=== PATIENT | female | born 1930 | race Caucasian/White ===

== ENCOUNTER 2016-07-04 10:43 | Inpatient (IN) | payer MEDICARE, OTHER ==
[~2016-07-04] VITALS: Ht 160 cm; Wt 65.8 kg
[2016-07-04 11:15] VITALS: BP 161/82
[2016-07-04 13:04] VITALS: BP 162/42
[2016-07-04 14:38] LABS: BASOPHILS 0.1 % (0.0-2.0); EOSINOPHILS 0 % (0-7); HEMATOCRIT 47.1 % (36.0-48.0); HEMOGLOBIN 16.3 g/dL (12-16); IMMATURE GRANULOCYTES 0.5 % (0-5); LYMPHOCYTES 8.1 % (15-50); MCH 28.6 pg (26.0-34.0); MCHC 34.6 g/dL (31.0-37.0); MCV 82.8 fL (80.0-100.0); MEAN PLATELET VOLUME 11.4 fL (7.4-10.4); MONOCYTES 8.1 % (2-11); NEUTROPHILS 83.2 % (40-80); PLATELET COUNT 287 10x3/uL (130-400); RBC 5.69 10x6/uL (4.00-5.40); RDW 14.1 % (11.5-14.5); WBC 19.4 10x3/uL (4.8-10.8)
[2016-07-04 16:31] VITALS: BP 153/70
[2016-07-04 16:53] LABS: ANION GAP 14.5 mmol/L (8-16); BILIRUBIN - TOTAL 0.51 mg/dL (0.2-1.3); CALCIUM 8.8 mg/dL (8.5-10.1); CARBON DIOXIDE 27.8 mmol/L (21.0-32.0); CREATININE - SERUM 1.2 mg/dL (0.6-1.3); POTASSIUM - SERUM 3.3 mmol/L (3.5-5.1); PROTEIN - SERUM 7.6 g/dL (6.4-8.2)
[2016-07-04 22:23] VITALS: BP 147/72
[2016-07-04 22:40] VITALS: BP 147/72
[2016-07-05] VITALS (7 sets, daily range): BP systolic 121–151; BP diastolic 52–87; Ht 160 cm; Wt 65.8 kg
[2016-07-05 08:14] LABS: HEMATOCRIT 46.6 % (36.0-48.0); HEMOGLOBIN 15.9 g/dL (12-16); RBC 5.49 10x6/uL (4.00-5.40); WBC 25.3 10x3/uL (4.8-10.8)
[2016-07-05 08:15] LABS: MCHC 34.1 g/dL (31.0-37.0); MCV 84.9 fL (80.0-100.0); MEAN PLATELET VOLUME 11.1 fL (7.4-10.4); PLATELET COUNT 312 10x3/uL (130-400); RDW 14.6 % (11.5-14.5)
[2016-07-05 08:19] LABS: ALBUMIN 3.2 g/dL (3.4-5.0); BILIRUBIN - TOTAL 0.55 mg/dL (0.2-1.3); CALCIUM 7.9 mg/dL (8.5-10.1); CARBON DIOXIDE 25.6 mmol/L (21.0-32.0); CHOL - HDL RATIO 2.7 ratio (2.3-4.1); CREATININE - SERUM 1.2 mg/dL (0.6-1.3); LDL-HDL RATIO 1.3 ratio (1.5-3.5); PROTEIN - SERUM 6.1 g/dL (6.4-8.2)
[2016-07-05 08:21] LABS: ANION GAP 16.2 mmol/L (8-16); POTASSIUM - SERUM 3.8 mmol/L (3.5-5.1)
[2016-07-05 08:49] LABS: LYMPHOCYTES 15 % (15-50); MONOCYTES 3 % (2-11); NEUTROPHILS 70 % (40-80); PLATELET ESTIMATE NORMAL
[2016-07-05 11:10] LABS: APPEARANCE CLEAR (CLEAR); BILIRUBIN NEGATIVE (NEGATIVE); COLOR YELLOW (YELLOW); GLUCOSE NEGATIVE (NEGATIVE); KETONE NEGATIVE (NEGATIVE); LEUKOCYTE ESTERASE TRACE (NEGATIVE); NITRITE NEGATIVE (NEGATIVE); PROTEIN 1+ mg/dL (NEGATIVE); SPECIFIC GRAVITY 1.015 (1.005-1.020); UROBILINOGEN NORMAL (NORMAL)
[2016-07-05 11:11] LABS: BACTERIA FEW /hpf (NONE SEEN); EPITHELIAL CELLS 0-5 /hpf (0-5); HYALINE CAST 0-5 /lpf (NONE SEEN); MUCUS <1+ /lpf (NONE SEEN); RED CELLS - URINE 0-5 /hpf (0-5); WHITE CELLS - URINE 0-5 /hpf (0-5)
[2016-07-06] VITALS: BP 159/64
[2016-07-06 04:00] VITALS: BP 152/62
[2016-07-06 06:00] LABS: BASOPHILS 0.1 % (0.0-2.0); EOSINOPHILS 0 % (0-7); HEMATOCRIT 42.3 % (36.0-48.0); HEMOGLOBIN 14.2 g/dL (12-16); MCH 28.8 pg (26.0-34.0); MCHC 33.6 g/dL (31.0-37.0); MCV 85.8 fL (80.0-100.0); MONOCYTES 8.2 % (2-11); NEUTROPHILS 81.7 % (40-80); PLATELET COUNT 264 10x3/uL (130-400); RBC 4.93 10x6/uL (4.00-5.40); WBC 20.7 10x3/uL (4.8-10.8)
[2016-07-06 06:27] LABS: ALBUMIN 2.4 g/dL (3.4-5.0); BILIRUBIN - TOTAL 0.4 mg/dL (0.2-1.3); CALCIUM 7.5 mg/dL (8.5-10.1); CARBON DIOXIDE 23.2 mmol/L (21.0-32.0); POTASSIUM - SERUM 4.2 mmol/L (3.5-5.1); THYROID STIMULATING HORMONE 2.31 uIU/mL (0.36-3.74)
[2016-07-06 09:00] VITALS: BP 146/54
[2016-07-06 16:34] VITALS: BP 146/54
[2016-07-06 23:13] VITALS: BP 151/71
[2016-07-07 04:00] VITALS: BP 136/67
[2016-07-07 06:49] LABS: BASOPHILS 0.2 % (0.0-2.0); EOSINOPHILS 0.1 % (0-7); HEMATOCRIT 38.2 % (36.0-48.0); HEMOGLOBIN 12.7 g/dL (12-16); IMMATURE GRANULOCYTES 2.4 % (0-5); LYMPHOCYTES 11.2 % (15-50); MCH 28.3 pg (26.0-34.0); MCHC 33.2 g/dL (31.0-37.0); MCV 85.1 fL (80.0-100.0); MEAN PLATELET VOLUME 10.8 fL (7.4-10.4); MONOCYTES 11.6 % (2-11); NEUTROPHILS 74.5 % (40-80); PLATELET COUNT 306 10x3/uL (130-400); RBC 4.49 10x6/uL (4.00-5.40); RDW 14.9 % (11.5-14.5); WBC 17.3 10x3/uL (4.8-10.8)
[2016-07-07 07:15] LABS: ALBUMIN 2.6 g/dL (3.4-5.0); ALKALINE PHOSPHATASE 63 U/L (46-116); ALT (SGPT) 19 U/L (10-68); AMYLASE - SERUM 88 U/L (25-115); CALC OSMOLALITY 282 mosm/kg (275-300); CALCIUM 7.7 mg/dL (8.5-10.1); CARBON DIOXIDE 22.7 mmol/L (21.0-32.0); CHLORIDE - SERUM 106 mmol/L (98-107); CREATININE - SERUM 0.7 mg/dL (0.6-1.3); GLUCOSE 82 mg/dL (74-106); LIPASE 166 U/L (73-393); POTASSIUM - SERUM 3.6 mmol/L (3.5-5.1); PROTEIN - SERUM 5.6 g/dL (6.4-8.2); SODIUM 141 mmol/L (136-145); THYROID STIMULATING HORMONE 2.07 uIU/mL (0.36-3.74); UREA NITROGEN 22 mg/dL (7-18); eGFR NON AFRICAN AMERICAN 84 mL/min (90-120)
[2016-07-07 08:37] VITALS: BP 153/65
[2016-07-07 12:12] VITALS: BP 155/70
[2016-07-07 16:58] VITALS: BP 158/72
[2016-07-07 20:00] VITALS: BP 170/70
[2016-07-08 04:00] VITALS: BP 158/58
[2016-07-08 06:41] LABS: HEMATOCRIT 38.1 % (36.0-48.0); HEMOGLOBIN 12.8 g/dL (12-16); MCH 28.3 pg (26.0-34.0); MCHC 33.6 g/dL (31.0-37.0); MCV 84.3 fL (80.0-100.0); MEAN PLATELET VOLUME 10.3 fL (7.4-10.4); PLATELET COUNT 335 10x3/uL (130-400); RBC 4.52 10x6/uL (4.00-5.40); RDW 14.5 % (11.5-14.5)
[2016-07-08 07:04] LABS: ALBUMIN 2.3 g/dL (3.4-5.0); ALKALINE PHOSPHATASE 73 U/L (46-116); ALT (SGPT) 23 U/L (10-68); CALCIUM 7.8 mg/dL (8.5-10.1); CARBON DIOXIDE 21.8 mmol/L (21.0-32.0); CHLORIDE - SERUM 101 mmol/L (98-107); CREATININE - SERUM 0.7 mg/dL (0.6-1.3); LIPASE 72 U/L (73-393); PROTEIN - SERUM 5.2 g/dL (6.4-8.2); SODIUM 135 mmol/L (136-145); eGFR NON AFRICAN AMERICAN 84 mL/min (90-120)
[2016-07-08 07:05] LABS: AMYLASE - SERUM 31 U/L (25-115); CALC OSMOLALITY 268 mosm/kg (275-300); GLUCOSE 58 mg/dL (74-106); UREA NITROGEN 16 mg/dL (7-18)
[2016-07-08 08:05] LABS: LYMPHOCYTES 20 % (15-50); MONOCYTES 10 % (2-11); NEUTROPHILS 62 % (40-80); PLATELET ESTIMATE NORMAL
[2016-07-08 08:20] VITALS: BP 166/77
[2016-07-08 12:30] VITALS: BP 176/63
[2016-07-08 16:36] VITALS: BP 151/80
[2016-07-08 20:00] VITALS: BP 162/69
[2016-07-09 06:06] LABS: BASOPHILS 0.6 % (0.0-2.0); EOSINOPHILS 0.9 % (0-7); HEMATOCRIT 35.4 % (36.0-48.0); HEMOGLOBIN 12.5 g/dL (12-16); IMMATURE GRANULOCYTES 8.5 % (0-5); MCH 28.6 pg (26.0-34.0); MCHC 35.3 g/dL (31.0-37.0); MEAN PLATELET VOLUME 10.1 fL (7.4-10.4); MONOCYTES 12.1 % (2-11); NEUTROPHILS 66.9 % (40-80); PLATELET COUNT 319 10x3/uL (130-400); RBC 4.37 10x6/uL (4.00-5.40); RDW 14.1 % (11.5-14.5)
[2016-07-09 07:20] LABS: ALBUMIN 1.9 g/dL (3.4-5.0); ALKALINE PHOSPHATASE 69 U/L (46-116); ALT (SGPT) 20 U/L (10-68); BILIRUBIN - TOTAL 0.82 mg/dL (0.2-1.3); CALCIUM 7.3 mg/dL (8.5-10.1); CARBON DIOXIDE 25.5 mmol/L (21.0-32.0); CHLORIDE - SERUM 103 mmol/L (98-107); CREATININE - SERUM 0.7 mg/dL (0.6-1.3); LIPASE 58 U/L (73-393); PROTEIN - SERUM 4.6 g/dL (6.4-8.2); SODIUM 140 mmol/L (136-145); eGFR NON AFRICAN AMERICAN 84 mL/min (90-120)
[2016-07-09 07:22] LABS: AMYLASE - SERUM 17 U/L (25-115); CALC OSMOLALITY 277 mosm/kg (275-300); GLUCOSE 99 mg/dL (74-106); UREA NITROGEN 11 mg/dL (7-18)
[2016-07-09 07:23] LABS: POTASSIUM - SERUM 2.3 mmol/L (3.5-5.1)
[2016-07-09 08:19] LABS: EOSINOPHILS 1 % (0-7); LYMPHOCYTES 23 % (15-50); MONOCYTES 3 % (2-11); NEUTROPHILS 65 % (40-80)
[2016-07-09 08:21] LABS: PLATELET ESTIMATE NORMAL
[2016-07-09 08:23] LABS: ANISOCYTOSIS OCC; BURR CELLS 1+; CRENATED CELLS OCC; ROULEAUX 1+
[2016-07-09 08:40] VITALS: BP 156/51
[2016-07-09 09:10] LABS: PATH REVIEW PERIPHERAL SMEAR REVIEWED
[2016-07-09 13:31] VITALS: BP 174/74
[2016-07-09 17:19] VITALS: BP 159/67
[2016-07-09 21:35] VITALS: BP 174/84
[2016-07-10 04:45] LABS: BASOPHILS 0.9 % (0.0-2.0); HEMATOCRIT 35.3 % (36.0-48.0); HEMOGLOBIN 12.6 g/dL (12-16); IMMATURE GRANULOCYTES 13.2 % (0-5); LYMPHOCYTES 11.4 % (15-50); MCH 28.3 pg (26.0-34.0); MCHC 35.7 g/dL (31.0-37.0); MCV 79.3 fL (80.0-100.0); MEAN PLATELET VOLUME 9.4 fL (7.4-10.4); MONOCYTES 12.9 % (2-11); NEUTROPHILS 60.6 % (40-80); PLATELET COUNT 304 10x3/uL (130-400); RBC 4.45 10x6/uL (4.00-5.40); WBC 18.3 10x3/uL (4.8-10.8)
[2016-07-10 05:05] LABS: ALBUMIN 1.9 g/dL (3.4-5.0); BILIRUBIN - TOTAL 0.75 mg/dL (0.2-1.3); CALCIUM 7.8 mg/dL (8.5-10.1); CREATININE - SERUM 0.8 mg/dL (0.6-1.3); PROTEIN - SERUM 5.7 g/dL (6.4-8.2)
[2016-07-10 05:07] LABS: ANION GAP 12.2 mmol/L (8-16)
[2016-07-10 05:08] LABS: POTASSIUM - SERUM 2.2 mmol/L (3.5-5.1)
[2016-07-10 08:41] VITALS: BP 131/83
[2016-07-10 11:42] VITALS: BP 163/82
[2016-07-10 15:34] VITALS: BP 178/86
[2016-07-10 21:54] VITALS: BP 154/82
[2016-07-11 06:11] LABS: BASOPHILS 1.2 % (0.0-2.0); HEMATOCRIT 36.2 % (36.0-48.0); HEMOGLOBIN 12.9 g/dL (12-16); IMMATURE GRANULOCYTES 13.7 % (0-5); LYMPHOCYTES 14.8 % (15-50); MCH 28.4 pg (26.0-34.0); MCHC 35.6 g/dL (31.0-37.0); MCV 79.7 fL (80.0-100.0); MEAN PLATELET VOLUME 9.8 fL (7.4-10.4); MONOCYTES 11.9 % (2-11); NEUTROPHILS 56.4 % (40-80); PLATELET COUNT 320 10x3/uL (130-400); RBC 4.54 10x6/uL (4.00-5.40); RDW 14.5 % (11.5-14.5); WBC 18.6 10x3/uL (4.8-10.8)
[2016-07-11 06:35] LABS: BILIRUBIN - TOTAL 0.66 mg/dL (0.2-1.3); CALCIUM 8.2 mg/dL (8.5-10.1); CREATININE - SERUM 0.8 mg/dL (0.6-1.3); MAGNESIUM - SERUM 1.3 mg/dL (1.8-2.4); PROTEIN - SERUM 5.8 g/dL (6.4-8.2)
[2016-07-11 08:44] VITALS: BP 150/63
[2016-07-11 11:49] VITALS: BP 156/71
[2016-07-11 15:37] VITALS: BP 175/67
[2016-07-11 21:45] VITALS: BP 150/64
[2016-07-11 23:00] VITALS: BP 163/67
[2016-07-12 04:00] VITALS: BP 141/73
[2016-07-12 05:54] LABS: BASOPHILS 1.1 % (0.0-2.0); EOSINOPHILS 1.7 % (0-7); HEMATOCRIT 35.9 % (36.0-48.0); HEMOGLOBIN 12.6 g/dL (12-16); LYMPHOCYTES 19.7 % (15-50); MCH 28.3 pg (26.0-34.0); MCHC 35.1 g/dL (31.0-37.0); MCV 80.7 fL (80.0-100.0); MEAN PLATELET VOLUME 9.7 fL (7.4-10.4); MONOCYTES 10.3 % (2-11); NEUTROPHILS 57.2 % (40-80); PLATELET COUNT 321 10x3/uL (130-400); RBC 4.45 10x6/uL (4.00-5.40); RDW 14.7 % (11.5-14.5); WBC 22.9 10x3/uL (4.8-10.8)
[2016-07-12 06:09] LABS: ANION GAP 9.9 mmol/L (8-16); BILIRUBIN - TOTAL 0.6 mg/dL (0.2-1.3); CALCIUM 8.4 mg/dL (8.5-10.1); CARBON DIOXIDE 29.5 mmol/L (21.0-32.0); CREATININE - SERUM 0.9 mg/dL (0.6-1.3); MAGNESIUM - SERUM 1.3 mg/dL (1.8-2.4); POTASSIUM - SERUM 3.4 mmol/L (3.5-5.1); PROTEIN - SERUM 5.8 g/dL (6.4-8.2)
[2016-07-12 08:57] VITALS: BP 161/64
[2016-07-12 12:24] VITALS: BP 149/56
[2016-07-12 16:02] VITALS: BP 153/74
[2016-07-12 20:00] VITALS: BP 152/68
[2016-07-13] VITALS: BP 146/59
[2016-07-13] MEDS ORDERED: PRAVACHOL40 MG PO (00:43)
[2016-07-13] MEDS ORDERED: NORVASC5 MG PO (00:46)
[2016-07-13] MEDS ORDERED: CALTRATE 600 M600 M1 PO (00:49)
[2016-07-13] MEDS ORDERED: K-DUR20 MEQ PO (00:50)
[2016-07-13] MEDS ORDERED: VITAMIN D31000 UNI2 PO (00:51)
[2016-07-13] MEDS ORDERED: [UNRECOGNIZED DRUG - OTHER] PO (00:56)
[2016-07-13 04:00] VITALS: BP 157/55
[2016-07-13 06:15] LABS: HEMOGLOBIN 11.4 g/dL (12-16); MCH 28.3 pg (26.0-34.0); MCHC 34.5 g/dL (31.0-37.0); MCV 81.9 fL (80.0-100.0); MEAN PLATELET VOLUME 9.6 fL (7.4-10.4); PLATELET COUNT 339 10x3/uL (130-400); RBC 4.03 10x6/uL (4.00-5.40); RDW 15.2 % (11.5-14.5)
[2016-07-13 06:45] LABS: ALBUMIN 1.9 g/dL (3.4-5.0); ANION GAP 8.2 mmol/L (8-16); BILIRUBIN - TOTAL 0.55 mg/dL (0.2-1.3); CARBON DIOXIDE 30.9 mmol/L (21.0-32.0); CREATININE - SERUM 0.9 mg/dL (0.6-1.3); PROTEIN - SERUM 5.6 g/dL (6.4-8.2)
[2016-07-13 06:48] LABS: MAGNESIUM - SERUM 2.2 mg/dL (1.8-2.4); POTASSIUM - SERUM 4.1 mmol/L (3.5-5.1)
[2016-07-13 07:33] LABS: EOSINOPHILS 4 % (0-7); LYMPHOCYTES 19 % (15-50); MONOCYTES 3 % (2-11); NEUTROPHILS 66 % (40-80); PLATELET ESTIMATE NORMAL
[2016-07-13 07:53] VITALS: BP 130/73
[2016-07-13 11:10] VITALS: BP 141/57
[2016-07-13 15:56] VITALS: BP 140/54
[2016-07-13 19:00] VITALS: BP 147/57
[2016-07-14 04:00] VITALS: BP 139/57
[2016-07-14 06:58] LABS: BASOPHILS 0.2 % (0.0-2.0); EOSINOPHILS 1.8 % (0-7); HEMATOCRIT 32.9 % (36.0-48.0); HEMOGLOBIN 11.1 g/dL (12-16); IMMATURE GRANULOCYTES 4.7 % (0-5); LYMPHOCYTES 15.2 % (15-50); MCH 27.9 pg (26.0-34.0); MCHC 33.7 g/dL (31.0-37.0); MCV 82.7 fL (80.0-100.0); MEAN PLATELET VOLUME 9.4 fL (7.4-10.4); MONOCYTES 8.1 % (2-11); PLATELET COUNT 324 10x3/uL (130-400); RBC 3.98 10x6/uL (4.00-5.40); RDW 15.5 % (11.5-14.5); WBC 16.7 10x3/uL (4.8-10.8)
[2016-07-14 07:14] LABS: BILIRUBIN - TOTAL 0.51 mg/dL (0.2-1.3); CALCIUM 8.4 mg/dL (8.5-10.1); CARBON DIOXIDE 28.5 mmol/L (21.0-32.0); CREATININE - SERUM 0.9 mg/dL (0.6-1.3); POTASSIUM - SERUM 4.5 mmol/L (3.5-5.1); PROTEIN - SERUM 5.7 g/dL (6.4-8.2)
[2016-07-14 07:20] LABS: MAGNESIUM - SERUM 1.6 mg/dL (1.8-2.4)
[2016-07-14 08:14] VITALS: BP 156/54
[2016-07-14 12:07] VITALS: BP 174/66
[2016-07-14 15:29] VITALS: BP 117/57
[2016-07-15] VITALS: BP 133/53
[2016-07-15 04:00] VITALS: BP 125/48
[2016-07-15 05:09] LABS: BASOPHILS 0.2 % (0.0-2.0); EOSINOPHILS 1.6 % (0-7); HEMOGLOBIN 10.8 g/dL (12-16); IMMATURE GRANULOCYTES 4.3 % (0-5); LYMPHOCYTES 10.9 % (15-50); MCH 27.4 pg (26.0-34.0); MCHC 32.7 g/dL (31.0-37.0); MCV 83.8 fL (80.0-100.0); MEAN PLATELET VOLUME 9.3 fL (7.4-10.4); MONOCYTES 9.2 % (2-11); NEUTROPHILS 73.8 % (40-80); PLATELET COUNT 321 10x3/uL (130-400); RBC 3.94 10x6/uL (4.00-5.40); RDW 15.2 % (11.5-14.5); WBC 14.6 10x3/uL (4.8-10.8)
[2016-07-15 05:33] LABS: ALBUMIN 2.1 g/dL (3.4-5.0); ANION GAP 10.8 mmol/L (8-16); BILIRUBIN - TOTAL 0.55 mg/dL (0.2-1.3); CALCIUM 8.3 mg/dL (8.5-10.1); CARBON DIOXIDE 29.5 mmol/L (21.0-32.0); MAGNESIUM - SERUM 1.5 mg/dL (1.8-2.4); POTASSIUM - SERUM 4.3 mmol/L (3.5-5.1); PROTEIN - SERUM 5.9 g/dL (6.4-8.2)
[2016-07-15 07:58] VITALS: BP 140/51
[2016-07-15 11:45] VITALS: BP 138/52
[2016-07-15 15:16] VITALS: BP 122/65
[2016-07-15 20:00] VITALS: BP 124/46
[2016-07-16] VITALS: BP 131/53
[2016-07-16 04:00] VITALS: BP 133/47
[2016-07-16 06:09] LABS: BASOPHILS 0.2 % (0.0-2.0); EOSINOPHILS 2.6 % (0-7); HEMATOCRIT 33.5 % (36.0-48.0); HEMOGLOBIN 11.1 g/dL (12-16); IMMATURE GRANULOCYTES 3.3 % (0-5); LYMPHOCYTES 16.2 % (15-50); MCH 28.1 pg (26.0-34.0); MCHC 33.1 g/dL (31.0-37.0); MCV 84.8 fL (80.0-100.0); MEAN PLATELET VOLUME 9.2 fL (7.4-10.4); MONOCYTES 10.1 % (2-11); NEUTROPHILS 67.6 % (40-80); PLATELET COUNT 341 10x3/uL (130-400); RBC 3.95 10x6/uL (4.00-5.40); RDW 15.2 % (11.5-14.5); WBC 11.1 10x3/uL (4.8-10.8)
[2016-07-16 06:40] LABS: ALBUMIN 2.1 g/dL (3.4-5.0); ANION GAP 9.1 mmol/L (8-16); BILIRUBIN - TOTAL 0.5 mg/dL (0.2-1.3); CALCIUM 8.6 mg/dL (8.5-10.1); CARBON DIOXIDE 29.9 mmol/L (21.0-32.0); CREATININE - SERUM 1.1 mg/dL (0.6-1.3); MAGNESIUM - SERUM 1.3 mg/dL (1.8-2.4); PROTEIN - SERUM 5.9 g/dL (6.4-8.2)
[2016-07-16 08:26] VITALS: BP 137/50
[2016-07-16] MEDS ORDERED: FLORAJEN3 CAPS460 MG PO (12:09)
[2016-07-16] MEDS ORDERED: PROTONIX40 MG PO (12:10)
[2016-07-16] MEDS ORDERED: Pancrease 5000,17,00 PO (12:10)
[2016-07-16 12:18] VITALS: BP 154/64
[2016-07-16] MEDS ORDERED: MAG-OXIDE400 MG PO (13:37)
[2016-07-16] MEDS ORDERED: HYDROCODON-ACE1 EAC7 PO (15:58)
== END 2016-07-16 16:18 | disposition home or self-care (01) | DRG 440 ==
LOC: D.MS 10:43 → D.SDCHOLD 14:47 → D.MS 14:47
PROVIDERS: Family Medicine; Internal Medicine Gastroenterology; ADMIT Family Medicine Adult Medicine
PROC: 05HB33Z Insertion of Infusion Device into Right Basilic Vein, Percutaneous Approach (ICD-10-PCS; principal; 2016-07-08)
PROC: B54MZZA Ultrasonography of Right Upper Extremity Veins, Guidance (ICD-10-PCS; 2016-07-08)
DX: K85.90 Acute pancreatitis without necrosis or infection, unspecified (principal); I10 Essential (primary) hypertension; E86.0 Dehydration; E87.6 Hypokalemia; E83.42 Hypomagnesemia

== ENCOUNTER → 2016-08-18 13:17 | Outpatient (CLI) | payer MEDICARE, OTHER ==
[2016-07-05 14:00] VITALS: BMI 25.6
[~2016-08-18 13:17] MED LIST: CALTRATE 600 M600 M1 PO; FLORAJEN3 CAPS460 MG PO; HYDROCODON-ACE1 EAC7 PO; K-DUR20 MEQ PO; MAG-OXIDE400 MG PO; NORVASC5 MG PO; PRAVACHOL40 MG PO; PROTONIX40 MG PO; Pancrease 5000,17,00 PO; VITAMIN D31000 UNI2 PO; [UNRECOGNIZED DRUG - OTHER] PO
== END | disposition home or self-care (01) ==
LOC: D.CT 13:17
DX: K86.3 Pseudocyst of pancreas (principal)

== ENCOUNTER 2019-05-18 12:49 | Emergency (ER) | payer MEDICARE, OTHER ==
[~2019-05-18] VITALS: Ht 160 cm; Wt 65.9 kg
[2019-05-18 12:55] VITALS: Ht 160 cm; Wt 65.9 kg
[2019-05-18] MEDS ORDERED: MACROBID100 MG PO (12:58)
[2019-05-18 13:17] LABS: COLOR YELLOW (YELLOW)
[2019-05-18 13:18] LABS: APPEARANCE CLEAR (CLEAR); BILIRUBIN NEGATIVE (NEGATIVE); GLUCOSE NEGATIVE (NEGATIVE); KETONE MODERATE mg/dL (NEGATIVE); NITRITE NEGATIVE (NEGATIVE); PROTEIN NEGATIVE (NEGATIVE); UROBILINOGEN NORMAL (NORMAL)
[2019-05-18 13:31] LABS: BASOPHILS 0.2 % (0-2); EOSINOPHILS 0.8 % (0-7); HEMATOCRIT 42.3 % (36.0-48.0); HEMOGLOBIN 13.9 g/dL (12-16); IMMATURE GRANULOCYTES 0.4 % (0-5); MCH 26.8 pg (26.0-34.0); MCHC 32.9 g/dL (31.0-37.0); MCV 81.7 fL (80.0-100.0); MEAN PLATELET VOLUME 10.3 fL (7.4-10.4); MONOCYTES 8.8 % (2-11); NEUTROPHILS 59.8 % (40-80); PLATELET COUNT 317 10x3/uL (130-400); RBC 5.18 10x6/uL (4.00-5.40); RDW 14.4 % (11.5-14.5); WBC 12.8 10x3/uL (4.8-10.8)
[2019-05-18 14:28] LABS: CALC OSMOLALITY 286 mosm/kg (275-300); CALCIUM 9.2 mg/dL (8.5-10.1); CARBON DIOXIDE 26.7 mmol/L (21.0-32.0); CHLORIDE - SERUM 104 mmol/L (98-107); CREATININE - SERUM 1.1 mg/dL (0.6-1.3); GLUCOSE 117 mg/dL (74-106); POTASSIUM - SERUM 3.5 mmol/L (3.5-5.1); SODIUM 142 mmol/L (136-145); UREA NITROGEN 20 mg/dL (7-18); eGFR NON AFRICAN AMERICAN 50 mL/min (90-120)
[2019-05-18 14:33] LABS: ALBUMIN 4.1 g/dL (3.4-5.0); ALKALINE PHOSPHATASE 110 U/L (46-116); ALT (SGPT) 46 U/L (10-68); AMYLASE - SERUM 38 U/L (25-115); LIPASE 110 U/L (73-393); PROTEIN - SERUM 7.8 g/dL (6.4-8.2); TROPONIN-I < 0.017 ng/mL (0.000-0.060)
[2019-05-18] MEDS ORDERED: CIPRO500 MG PO (17:06)
[2019-05-18] MEDS ORDERED: FLAGYL500 MG PO (17:06)
[2019-05-18 17:30] VITALS: BP 175/79
== END 2019-05-18 17:32 | disposition home or self-care (01) ==
LOC: D.ER 12:49
PROVIDERS: Emergency Medicine
DX: K57.92 Diverticulitis of intestine, part unspecified, without perforation or abscess without bleeding (principal); I10 Essential (primary) hypertension; K21.9 Gastro-esophageal reflux disease without esophagitis

== ENCOUNTER 2019-09-08 20:49 | Inpatient (IN) | payer MEDICARE, OTHER ==
[~2019-09-08] VITALS: Ht 160 cm; Wt 78.0 kg
[~2019-09-08 20:49] MED LIST changes: +CIPRO500 MG PO; +FLAGYL500 MG PO; +MACROBID100 MG PO
[2019-09-08 21:02] LABS: BASOPHILS 0.1 % (0-2); EOSINOPHILS 0.8 % (0-7); HEMATOCRIT 40.9 % (36.0-48.0); HEMOGLOBIN 12.9 g/dL (12-16); IMMATURE GRANULOCYTES 0.5 % (0-5); LYMPHOCYTES 22.4 % (15-50); MCH 25.6 pg (26.0-34.0); MCHC 31.5 g/dL (31.0-37.0); MCV 81.3 fL (80.0-100.0); MEAN PLATELET VOLUME 10.2 fL (7.4-10.4); MONOCYTES 8.6 % (2-11); NEUTROPHILS 67.6 % (40-80); PLATELET COUNT 343 10x3/uL (130-400); RBC 5.03 10x6/uL (4.00-5.40); RDW 14.8 % (11.5-14.5); WBC 16.9 10x3/uL (4.8-10.8)
[2019-09-08 21:12] LABS: CALC OSMOLALITY 286 mosm/kg (275-300); CALCIUM 8.9 mg/dL (8.5-10.1); CHLORIDE - SERUM 105 mmol/L (98-107); CREATININE - SERUM 1.3 mg/dL (0.6-1.3); GLUCOSE 199 mg/dL (74-106); POTASSIUM - SERUM 3.5 mmol/L (3.5-5.1); SODIUM 140 mmol/L (136-145); UREA NITROGEN 18 mg/dL (7-18); eGFR NON AFRICAN AMERICAN 41 mL/min (90-120)
[2019-09-08 21:25] LABS: ALBUMIN 3.9 g/dL (3.4-5.0); ALKALINE PHOSPHATASE 105 U/L (30-120); ALT (SGPT) 25 U/L (10-68); BILIRUBIN - TOTAL 0.29 mg/dL (0.2-1.3); PROTEIN - SERUM 7.4 g/dL (6.4-8.2)
[2019-09-08 21:27] LABS: LIPASE 8957 U/L (73-393); TROPONIN-I < 0.017 ng/mL (0.000-0.060)
[2019-09-08 21:28] LABS: AMYLASE - SERUM 898 U/L (25-115)
[2019-09-09 00:20] VITALS: BP 142/45; BMI 25.7
--- NOTE | 2019-09-09 00:50 | NUR ---
ASSITING PATIENT TO THE BATHROOM. PROVIDED EDUCATION ON MEDICAL INSURANCE CLAIMS PROCESSOR AND MEDICATIONS. PATIENT VERBALIZES UNDERSTANDING. RETURNED TO BED SAFELY. CPOC.
[2019-09-09 04:00] VITALS: BP 131/50
[2019-09-09 05:48] LABS: BASOPHILS 0 % (0-2); EOSINOPHILS 0 % (0-7); HEMOGLOBIN 11.9 g/dL (12-16); IMMATURE GRANULOCYTES 0.2 % (0-5); LYMPHOCYTES 12.7 % (15-50); MCH 25.3 pg (26.0-34.0); MCHC 31.3 g/dL (31.0-37.0); MCV 80.7 fL (80.0-100.0); NEUTROPHILS 82.1 % (40-80); PLATELET COUNT 326 10x3/uL (130-400); RBC 4.71 10x6/uL (4.00-5.40); RDW 14.9 % (11.5-14.5)
[2019-09-09 06:09] LABS: INR 1.07 (0.85-1.17); PROTIME 13.8 SECONDS (11.6-15.0)
[2019-09-09 06:10] LABS: APTT 28.5 SECONDS (22.8-39.4)
[2019-09-09 06:20] LABS: ALBUMIN 3.5 g/dL (3.4-5.0); ANION GAP 14.2 mmol/L (8-16); BILIRUBIN - TOTAL 0.29 mg/dL (0.2-1.3); CALCIUM 8.2 mg/dL (8.5-10.1); CARBON DIOXIDE 22.9 mmol/L (21.0-32.0); CREATININE - SERUM 1.1 mg/dL (0.6-1.3); PHOSPHOROUS 3.3 mg/dL (2.5-4.9); PROTEIN - SERUM 6.8 g/dL (6.4-8.2)
[2019-09-09 06:44] LABS: POTASSIUM - SERUM 4.1 mmol/L (3.5-5.1)
--- NOTE | 2019-09-09 07:46 | NUR ---
PT IS RESTING IN BED WITH EYES CLOSED. RESPIRATIONS ARE EVEN AND UNLABORED. PT IS EASILY AROUSED WITH VERBAL STIMULATION. PT IS AAO X 4 UPON AROUSAL. PT REPORTS FREQUENT PERIODS OF N/V/PAIN. WILL ADDRESS. SEE EMAR. BS ACTIVE X 4. FALL PRECAUTIONS IN PLACE. BED IS IN THE LOWEST POSITION. CALL LIGHT AND BEDSIDE TABLE ARE WITIHN REACH. SIDE RAILS X 2. PT DENIES FURTHER NEEDS. WILL CONT TO MONITOR.
--- NOTE | 2019-09-09 08:24 | MORECARE ---
CASE MANAGEMENT DISCHARGE SUMMARY PATIENT: RACHELLE BRITO UNIT: [id number] ADM DATE: 09/08/19 AGE: 89 : 30 SEX: F ROOM/BED: D.2213 AUTHOR: ALTHEA,DOC PHYSICIAN: REFERRING PHYSICIAN: NICCI RIBEIRO MD DATE OF SERVICE: 09/09/19 Discharge Plan Patient Name: RACHELLE BRITO Facility: [facility]:[place] : 1930 Planned Disposition: Home or Self Care Anticipated Discharge Date: Discharge Date: Expected LOS: Initial Reviewer: [email or web address] Initial Review Date: 09/08/2019 Generated: 09/09/19 9:24 am Comments DCP- Discharge Planning Updated by [email or web address]: Karyn Harrell on 09/09/19 7:[address] Patient Name: RACHELLE BRITO Admission Status: ER Accout number: [id number] Admission Date: 09-08-2019 : 1930 Admission Diagnosis: Attending: NICCI RIBEIRO Current LOS: 1 Anticipated DC Date: Planned Disposition: Home or Self Care Primary Insurance: MEDICARE A & B Discharge Planning Comments: CM met with patient to complete initial dc planning assessment. CM educated patient on the CM role and verbal consent given by patient to complete assessment. Patient lives at home alone where she states she is independent with her care. At discharge patient plans to return home and feels this is a safe discharge. CM discussed availability of home health, rehab services, and medical equipment. At discharge her son or niece will be her cpr ambulance driver home. Patient denied known discharge needs at this time. CM will continue to follow and will assist as needed with dc plans/needs. Blasting Worker: Karyn Harrell DCPIA - Discharge Planning Initial Assessment Updated by [email or web address]: Karyn Harrell on 09/09/19 8:21 am * Is the patient Alert and Oriented? Yes * How many steps to enter\exit or inside your home? * PCP VAISHALI * Pharmacy [facility] * Preadmission Environment Home Alone * ADLs Independent * Equipment None * List name and contact numbers for known caregivers / representatives who currently or will assist patient after discharge: BRIAN BRITO (SON) [phone] NAA DASILVA * Verbal permission to speak to the caregivers and representatives has been obtained from the patient. N/A * Community resources currently utilized None * Additional services required to return to the preadmission environment? No * Can the patient safely return to the preadmission environment? Yes * Has this patient been hospitalized within the prior 30 days at any hospital? No Patient Name: RACHELLE BRITO Page [id number] at 0824 All edits/amendments must be made on the electronic document DICTATION DATE: 09/09/19823 DOCK MANAGER: FAVIAN 09/09/19823 RPT#: [id number] DC DATE: STATUS: ADM IN [facility] [address] [place] [address] END OF REPORT
[2019-09-09 08:56] VITALS: BP 154/56
[2019-09-09 12:47] VITALS: BMI 25.6
[2019-09-09 13:36] VITALS: BP 165/59
--- NOTE | 2019-09-09 15:07 | NUR ---
OT NOTE: PT REQUESTING TO HOLD SHE WAS NAUSEATED THIS AM..CHECKED IN PM AND SHE STATED THAT SHE HAD JUST VOMITTED AGAIN. VISUAL INSPECTOR STATED THAT SHE HAD BEEN SICK ALL DAY. WILL RE ASSESS AT LATER DATE. ANANT LYLE, OTR/L
--- NOTE | 2019-09-09 16:52 | NUR ---
PT RESTING COMFORTABLY. TACKING STITCH REMOVER INFUSING WITHOUT DIFFICULTY. BED IS IN THE LOWEST POSITION. CALL LIGHT AND BEDSIDE TABLE ARE WITHIN REACH. SIDE RAILS X 2. FALL PRECAUTIONS IN PLACE. WILL CONT TO MONITOR.
[2019-09-09 18:31] VITALS: BP 140/52
--- NOTE | 2019-09-09 19:00 | NUR ---
ALERT AND ORIENTED WHEN ENTERING THE ROOM. LEFT AC IV INFUSING NS, ZOFRAN, AND CABINETMAKER MAINTENANCE. WEARING 2L NC. UNLABORED RESPIORATIONS. PATIENT HAS FREQUENT, DRY, HACKING COUGH. REPORTS "HIATAL HERNIA." BOWEL SOUNDS ARE ACTIVE AND TENDERNESS TO ABDOMINAL PALPATION NOTED. SCD'S ON BILATERALLY. PATIENT IS A ONE PERSON ASSIST TO THE BATHROOM. DENIES FURTHER NEEDS AT THIS TIME. CALL LIGHT CLOSE. CPOC.
[2019-09-09 20:00] VITALS: BP 147/58
--- NOTE | 2019-09-09 21:57 | NUR ---
ASSSITED TO THE BATHROOM. PATIENT AMBULATES WELL WITH ONE PERSON ASSIST. DENIES FURTHER NEEDS AT THIS TIME. RETURNED BACKED TO BED SAFELY WITH SCD'S ON AND BED ALARM ON. CALL LIGHT CLOSE. CPOC.
[2019-09-10 01:31] LABS: BILIRUBIN NEGATIVE (NEGATIVE); GLUCOSE NEGATIVE (NEGATIVE); KETONE NEGATIVE (NEGATIVE); NITRITE NEGATIVE (NEGATIVE); UROBILINOGEN NORMAL (NORMAL)
[2019-09-10 04:00] VITALS: BP 153/61
--- NOTE | 2019-09-10 04:00 | NUR ---
I have reviewed this patient and I concur with the Shift Assessment completed by the Licensed Practical Nurse today this shift.
[2019-09-10 07:20] LABS: ALBUMIN 3.5 g/dL (3.4-5.0); ANION GAP 16.8 mmol/L (8-16); BILIRUBIN - TOTAL 0.56 mg/dL (0.2-1.3); CALCIUM 8.7 mg/dL (8.5-10.1); CARBON DIOXIDE 21.3 mmol/L (21.0-32.0); MAGNESIUM - SERUM 2.1 mg/dL (1.8-2.4); POTASSIUM - SERUM 4.1 mmol/L (3.5-5.1); PROTEIN - SERUM 6.4 g/dL (6.4-8.2)
[2019-09-10 07:24] LABS: HEMATOCRIT 39.1 % (36.0-48.0); HEMOGLOBIN 12.1 g/dL (12-16); MCH 25.5 pg (26.0-34.0); MCHC 30.9 g/dL (31.0-37.0); MCV 82.5 fL (80.0-100.0); MEAN PLATELET VOLUME 11.3 fL (7.4-10.4); PLATELET COUNT 283 10x3/uL (130-400); RBC 4.74 10x6/uL (4.00-5.40); RDW 15.7 % (11.5-14.5); WBC 21.6 10x3/uL (4.8-10.8)
--- NOTE | 2019-09-10 07:44 | NUR ---
RESTING IN BED, NO DISTRESS NOTED, EYES CLOSED,
--- NOTE | 2019-09-10 07:50 | NUR ---
UP TO BATHROOM, SANDRA WELL
[2019-09-10 07:51] LABS: LYMPHOCYTES 25 % (15-50); NEUTROPHILS 75 % (40-80); PLATELET ESTIMATE NORMAL
--- NOTE | 2019-09-10 08:05 | NUR ---
AMYLASE OF [address] DUE TO LABS VALUES DECREASED FROM YESTERDAY 571
[2019-09-10 08:20] VITALS: BP 158/39
[2019-09-10 12:11] VITALS: BP 107/56
[2019-09-10 13:46] LABS: LDL-HDL RATIO 1.6 ratio (1.5-3.5)
[2019-09-10] MEDS ORDERED: ZETIA10 MG PO (16:54)
[2019-09-10] MEDS ORDERED: K-DUR20 MEQ PO (16:54)
[2019-09-10] MEDS ORDERED: LIPITOR10 MG (16:56)
--- NOTE | 2019-09-10 17:00 | NUR ---
REC CALL FROM TELE THAT PT WAS IN UNCONT A FIB, CK PT, SHE WAS SITTING ON SIDE OF BED, VOICED NO CONCERNS
--- NOTE | 2019-09-10 17:20 | NUR ---
PLACED CALL TO SIMA ENGINE DISPATCHER, ORDERS REC TO CONSULT DR ALVAREZ, AND MOVE PT TO MED 2, PT REC CALL FROM FAMILY ABOUT PT CONDITION
--- NOTE | 2019-09-10 17:30 | NUR ---
REPORT CALLED TO MED 2, PAGE PLACED TO DR ALVAREZ, PT TAKEN OVER PER BED WITH IV INTACT AND TELE, VOICED NO CONCERNS, PAIN OR DISTRESS
--- NOTE | 2019-09-10 17:45 | NUR ---
PATIENT RECEIVED TO ROOM 2121 VIA BED. PATIENT TRANSFERRED FROM [facility]. PATIENT ALERT/ORIENTED, AMBULATORY. PATIENT WITH 20 GAUGE IV TO RIGHT FOREARM. CALL LIGHT PLACED WITHIN REACH. PERSONAL BELONGINGS PLACED IN CLOSED. PATIENT DENIES ANY NEEDS AT THIS TIME. PATIENT VERBALIZED UNDERSTANDING TO CALL FOR ASSISTANCE.
--- NOTE | 2019-09-10 18:08 | NUR ---
CARDIZEM INFUSING TO RIGHT FOREARM ORDERED AT THIS TIME. NO DISTRESS.
--- NOTE | 2019-09-10 19:20 | NUR ---
RECEIVED REPORT, WILL ASSUME CARE OF PT, ASSIST TO RESTROOM AND BACK TO BED, DENIES ANY NEEDS, BED IS LOW, SRX2, CALL LIGHT IN REACH, WILL CONTINUE PLAN OF CARE
[2019-09-10 20:00] VITALS: BP 141/57
[2019-09-10 21:08] LABS: CKMB 3.4 U/L (0.0-3.6); CREATINE KINASE 432 UL (21-215)
[2019-09-10 21:12] LABS: TROPONIN-I < 0.017 ng/mL (0.000-0.060)
[2019-09-11] VITALS: BP 129/54
[2019-09-11 01:59] LABS: BASOPHILS 0.1 % (0-2); EOSINOPHILS 0.1 % (0-7); HEMATOCRIT 33.3 % (36.0-48.0); HEMOGLOBIN 10.5 g/dL (12-16); IMMATURE GRANULOCYTES 0.5 % (0-5); MCH 25.5 pg (26.0-34.0); MCHC 31.5 g/dL (31.0-37.0); MCV 80.8 fL (80.0-100.0); MEAN PLATELET VOLUME 10.4 fL (7.4-10.4); MONOCYTES 9.7 % (2-11); NEUTROPHILS 75.6 % (40-80); PLATELET COUNT 256 10x3/uL (130-400); RBC 4.12 10x6/uL (4.00-5.40); RDW 15.6 % (11.5-14.5); WBC 18.5 10x3/uL (4.8-10.8)
[2019-09-11 02:21] LABS: ALBUMIN 2.7 g/dL (3.4-5.0); ALKALINE PHOSPHATASE 72 U/L (30-120); ALT (SGPT) 20 U/L (10-68); BILIRUBIN - TOTAL 0.52 mg/dL (0.2-1.3); CALC OSMOLALITY 280 mosm/kg (275-300); CARBON DIOXIDE 25.7 mmol/L (21.0-32.0); CHLORIDE - SERUM 108 mmol/L (98-107); CKMB 2.2 U/L (0.0-3.6); CREATINE KINASE 330 UL (21-215); CREATININE - SERUM 1.1 mg/dL (0.6-1.3); GLUCOSE 125 mg/dL (74-106); MAGNESIUM - SERUM 1.9 mg/dL (1.8-2.4); PROTEIN - SERUM 5.8 g/dL (6.4-8.2); SODIUM 140 mmol/L (136-145); TROPONIN-I 0.039 ng/mL (0.000-0.060); UREA NITROGEN 14 mg/dL (7-18); eGFR NON AFRICAN AMERICAN 50 mL/min (90-120)
[2019-09-11 02:28] LABS: AMYLASE - SERUM 101 U/L (25-115); LIPASE 150 U/L (73-393); POTASSIUM - SERUM 3.3 mmol/L (3.5-5.1)
[2019-09-11 04:00] VITALS: BP 125/54
--- NOTE | 2019-09-11 04:05 | NUR ---
STOPPED EPILEPSY PHYSICIAN PUMP
--- NOTE | 2019-09-11 07:00 | NUR ---
RECEIVED REPORT. ASSUMED CARE OF PATIENT. CALL LIGHT WITHIN REACH. PATIENT RESTING IN BED WITH EYES OPEN. PATIENT COMPLAIN OF A COUGH, POST NASAL DRIP THIS AM. PATIENT VERBALIZED UNDERSTANDING OF NPO STATUS FOR PIPIDA SCAN. LABOR CUSTODIAN PUMP OFF AT THIS TIME SO NOT TO OBSCUR TEST. BEDSIDE REPORT COMPLETED, WHITE BOARD UPDATED. PATIENT IS SR ON TELEMETRY, RATE OF 74. NO FURTHER ATRIAL FIB REPORTED AFTER CONVERTING ON PREVIOUS SHIFT.
[2019-09-11 07:52] LABS: CREATINE KINASE 316 UL (21-215); POTASSIUM - SERUM 3.7 mmol/L (3.5-5.1); TROPONIN-I 0.027 ng/mL (0.000-0.060)
[2019-09-11 08:45] VITALS: BP 149/57
--- NOTE | 2019-09-11 09:04 | NUR ---
PATIENTS PROVIDER, OCTAVIO DASILVA CALLED AND REQUESTED UPDATE. UPDATE PROVIDED AND STATES SHE WILL UPDATE THE FAMILY.
--- NOTE | 2019-09-11 10:28 | NUR ---
PATIENT LEAVING UNIT FOR PIPIDA SCAN AT THIS TIME.
--- NOTE | 2019-09-11 11:29 | NUR ---
REMAINS OFF UNIT AT THIS TIME FOR PIPIDA SCAN.
--- NOTE | 2019-09-11 12:10 | NUR ---
PATIENT ADMINISTERED 2MG OF MORPHINE IV PUSH PER DUE TO GALLBLADDER DID NOT SHOW UP AFTER ONE HOUR OF MEDIA CONTRAST INJECTED. PATIENT REMAINS IN NUCLEAR MED AT THIS TIME.
--- NOTE | 2019-09-11 12:40 | NUR ---
PATIENT RETURNED FROM PIPIDA SCAN. NO DISTRESS. SITTING TO SIDE OF BED AT THIS TIME. IV INFUSING ORDERED.
--- NOTE | 2019-09-11 13:34 | NUR ---
PATIENTS SISTER FROM [place] CALLED TO GET INFORMATION ABOUT THE PATIENT. SPOKE WITH THE PATIENT TO INFORM THEM SOMEONE WAS CALLING TO GET INFORMATION AND THE PATIENT STATES TO PLEASE TELL THEM I WILL CALL THEM WHEN I CAN CLINICAL RESEARCH NURSE AT BEDSIDE. MESSAGE RELAYED TO CALLER AND CALLER THANKED THIS NURSE.
[2019-09-11 14:00] VITALS: BP 152/52
--- NOTE | 2019-09-11 16:13 | NUR ---
ORDER VERIFIED WITH HIEU SANTIZO, ONE HOUR AFTER PATIENT HAS RECEIVED HER ORAL DOSE OF CARDIZEM TONIGHT, CARDIZEM DRIP MAY BE DISCONTINUED PER 'S NURSING MESSAGE TO TITRATE OFF DRIP.
--- NOTE | 2019-09-11 19:30 | NUR ---
RECEIVED REPORT, WILL ASSUME CARE OF PT, ASSIST PT TO RESTROOM AND BACK TO BED, PROVIDE ICEWATER, BED IS LOW, SRX2, CALL LIGHT IN REACH, WILL CONTINUE PLAN OF CARE
[2019-09-11 20:00] VITALS: BP 138/70
[2019-09-12] VITALS (8 sets, daily range): BP systolic 144–159; BP diastolic 56–74; Ht 160 cm; Wt 78.0 kg
--- NOTE | 2019-09-12 02:03 | NUR ---
I have reviewed this patient and I concur with the Shift Assessment completed by the Licensed Practical Nurse today this shift.
[2019-09-12 05:27] LABS: ALBUMIN 2.8 g/dL (3.4-5.0); BILIRUBIN - TOTAL 0.67 mg/dL (0.2-1.3); CALCIUM 8.3 mg/dL (8.5-10.1); CARBON DIOXIDE 24.2 mmol/L (21.0-32.0); MAGNESIUM - SERUM 1.9 mg/dL (1.8-2.4); PHOSPHOROUS 1.6 mg/dL (2.5-4.9); PROTEIN - SERUM 6.2 g/dL (6.4-8.2)
[2019-09-12 05:30] LABS: ANION GAP 12.9 mmol/L (8-16); CREATININE - SERUM 0.8 mg/dL (0.6-1.3); POTASSIUM - SERUM 3.1 mmol/L (3.5-5.1)
[2019-09-12 05:46] LABS: BASOPHILS 0.1 % (0-2); EOSINOPHILS 0.3 % (0-7); HEMATOCRIT 35.7 % (36.0-48.0); HEMOGLOBIN 11.4 g/dL (12-16); IMMATURE GRANULOCYTES 0.9 % (0-5); LYMPHOCYTES 11.5 % (15-50); MCH 25.8 pg (26.0-34.0); MCHC 31.9 g/dL (31.0-37.0); MCV 80.8 fL (80.0-100.0); MEAN PLATELET VOLUME 10.9 fL (7.4-10.4); MONOCYTES 10.4 % (2-11); NEUTROPHILS 76.8 % (40-80); RBC 4.42 10x6/uL (4.00-5.40); RDW 15.5 % (11.5-14.5); WBC 18.4 10x3/uL (4.8-10.8)
[2019-09-12 05:47] LABS: PLATELET COUNT 312 10x3/uL (130-400)
--- NOTE | 2019-09-12 07:15 | NUR ---
RECEIVED PT IN BED AAOX4 RESP UNLABORED O2 ON 4 LPM NC SKIN W/D COLOR WNL PT DENIES ANY NEEDS OR DISCOMFORT AT THIS TIME
--- NOTE | 2019-09-12 08:58 | CN ---
PATIENT NAME:RACHELLE BRITO MEDICAL RECORD: [id number] : 30 LOCATION:D.[place] D.2122 ADMIT DATE: 09/08/19 ACCOUNT: [id number] CONSULTING PHYSICIAN: ELIA GARCIA MD REFERRING PHYSICIAN: NICCI RIBEIRO MD DATE OF CONSULTATION: 09/11/2019 HISTORY OF PRESENT ILLNESS: An 89-year-old female with a history of hypertension, hyperlipidemia, chronic pancreatitis, admitted with intractable nausea, vomiting, abdominal pain, was noted to have an episode of AFib with RVR responded nicely to calcium channel blockade in the form of IV Cardizem, she currently has sinus rhythm. Reports feeling better from overall standpoint with decrease in GI distress. We are asked to see her concerning her cardiovascular status. PAST MEDICAL HISTORY: Includes; 1. History of hypertension. 2. Hyperlipidemia. 3. Recurrent pancreatitis. 4. Previous history of ORIF tibia. ALLERGIES: None known. MEDICATIONS: Typically include amlodipine 5 mg p.o. daily, atorvastatin 10 mg p.o. daily, Zetia 10 mg p.o. daily, potassium 20 mEq p.o. b.i.d., Protonix 40 mg p.o. daily. SOCIAL HISTORY: Nonsmoker, nondrinker. She takes care of all her ADLs. REVIEW OF SYSTEMS: The patient reports easy bruising but reports no swollen glands. The patient reports no fever, no night sweats, no significant weight gain, no significant weight loss. No significant exercise tolerance. The patient reports no dry eyes, no irritation, no vision change. Patient reports no difficulty hearing and no ear pain. Patient reports no frequent nose bleeds or nose and sinus problems. Patient reports on arm pain on exertion. No shortness of breath while lying down. No history of heart murmur. Patient reports no cough, no wheezing or coughing up blood. Patient reports no abdominal pain, no vomiting. Normal appetite. No diarrhea and not vomiting blood. No nausea and no constipation. Patient reports no incontinence. No difficulty urinating. No hematuria. No increased frequency. Patient reports no muscle aches. No weakness, no arthralgias, no back pain. No swelling of the extremities. Patient reports no abnormal mole, no jaundice, no rashes. Reports no loss of consciousness. No weakness and no numbness. No seizures, dizziness, or headaches. The patient reports no depression, no sleep disturbance, feeling safe in a relationship and no alcohol abuse. Patient reports on fatigue. Reports no runny nose or sinus pressure. No itching, no hives, and no frequent sneezing. PHYSICAL EXAMINATION: GENERAL: A pleasant female, in no acute distress, appears younger than stated age, alert and appropriate. VITAL SIGNS: Blood pressure 148/57, pulse 84 and regular, currently. HEENT: Normocephalic, atraumatic. NECK: No JVD or bruit. HEART: Regular. II/ systolic ejection murmur. CONSULT REPORT [id number] RACHELLE BRITO LUNGS: Good air excursion. ABDOMEN: Soft, nontender. EXTREMITIES: Pulses well preserved, 2+. There is no edema. IMPRESSION: Paroxysmal atrial fibrillation, responding nicely to IV Cardizem, probably secondary to current illness, increased catacholmine drive, etc. We would simply switched her oral calcium channel blockade from amlodipine to Cardizem, can taper off the drip after she has been started on the oral Cardizem. Thank you for the consultation. TRANSINT:[id number] Voice Confirmation ID: [id number] DOCUMENT ID: [id number] ELIA GARCIA MD at 0858 CC: [id number] DICTATION DATE: 09/11/19945 LOCK OPERATOR: 09/11/19 1337 ADM IN [facility] [address] [facility] [address]
--- NOTE | 2019-09-12 12:59 | NUR ---
Nutrition Follow-up: Noted lap yariel planned for today. Diet: NPO PO intake: 25-50% Wt: 143# (09/11); 145# (09/08 - stated) Last BM: 09/07 per chart Labs noted: K+ 3.3, Glu 127, Ca 8.3, PO4 1.6, Alb 2.8, Amylase 30, Lipase 53 Meds noted: Reglan, Protonix, NS @ 50, electrolyte protocol -Rec ADAT as medically feasible following procedure. -Monitor wt; noted daily wts ordered. -RD following.
--- NOTE | 2019-09-12 19:20 | NUR ---
RECEIVED REPORT, WILL ASSUME CARE OF PT, DENIES ANY NEEDS AT THIS TIME, BED IS LOW, SRX2, CALL LIGHT IN REACH, WILL CONTINUE PLAN OF CARE
--- NOTE | 2019-09-13 02:37 | NUR ---
I have reviewed this patient and I concur with the Shift Assessment completed by the Licensed Practical Nurse today this shift.
[2019-09-13 05:23] VITALS: BP 159/54
[2019-09-13 06:52] LABS: ALBUMIN 2.7 g/dL (3.4-5.0); ANION GAP 11.6 mmol/L (8-16); BILIRUBIN - TOTAL 0.68 mg/dL (0.2-1.3); CALCIUM 8.4 mg/dL (8.5-10.1); CARBON DIOXIDE 24.8 mmol/L (21.0-32.0); CREATININE - SERUM 0.9 mg/dL (0.6-1.3); POTASSIUM - SERUM 3.4 mmol/L (3.5-5.1); PROTEIN - SERUM 6.5 g/dL (6.4-8.2)
[2019-09-13 07:13] LABS: HEMATOCRIT 35.7 % (36.0-48.0); HEMOGLOBIN 11.4 g/dL (12-16); MCH 25.7 pg (26.0-34.0); MCHC 31.9 g/dL (31.0-37.0); MCV 80.6 fL (80.0-100.0); MEAN PLATELET VOLUME 10.4 fL (7.4-10.4); RBC 4.43 10x6/uL (4.00-5.40); RDW 15.5 % (11.5-14.5); WBC 16.4 10x3/uL (4.8-10.8)
[2019-09-13 07:14] LABS: PLATELET COUNT 384 10x3/uL (130-400)
--- NOTE | 2019-09-13 09:01 | NUR ---
ASSESSMENT DONE, DENIES NEEDS
[2019-09-13 09:21] VITALS: BP 146/52
--- NOTE | 2019-09-13 10:11 | NUR ---
I have reviewed this patient and I concur with the Shift Assessment completed by the Licensed Practical Nurse today this shift.
[2019-09-13 10:28] LABS: LYMPHOCYTES 11 % (15-50); MONOCYTES 15 % (2-11); NEUTROPHILS 72 % (40-80); PLATELET ESTIMATE NORMAL
[2019-09-13 10:29] LABS: ROULEAUX OCC
[2019-09-13 13:03] VITALS: BP 165/71
[2019-09-13 17:38] VITALS: BP 179/59
[2019-09-13 21:31] VITALS: BP 162/65
[2019-09-14 00:30] VITALS: BP 151/48
--- NOTE | 2019-09-14 03:46 | NUR ---
I have reviewed this patient and I concur with the Shift Assessment completed by the Licensed Practical Nurse today this shift.
[2019-09-14 04:39] VITALS: BP 150/59
[2019-09-14 06:10] LABS: AMYLASE - SERUM 23 U/L (25-115); LIPASE 55 U/L (73-393)
--- NOTE | 2019-09-14 07:37 | NUR ---
ASSESSMENT DONE DENIES NEEDS
[2019-09-14 07:38] VITALS: BP 186/75
--- NOTE | 2019-09-14 09:21 | NUR ---
I have reviewed this patient and I concur with the Shift Assessment completed by the Licensed Practical Nurse today this shift.
[2019-09-14 11:18] VITALS: BP 154/62
[2019-09-14 11:30] LABS: PHOSPHOROUS 2.2 mg/dL (2.5-4.9); POTASSIUM - SERUM 3.4 mmol/L (3.5-5.1)
[2019-09-14 12:22] LABS: CALC OSMOLALITY 283 mosm/kg (275-300); CALCIUM 8.3 mg/dL (8.5-10.1); CHLORIDE - SERUM 107 mmol/L (98-107); CREATININE - SERUM 0.7 mg/dL (0.6-1.3); GLUCOSE 119 mg/dL (74-106); POTASSIUM - SERUM 3.5 mmol/L (3.5-5.1); SODIUM 142 mmol/L (136-145); UREA NITROGEN 13 mg/dL (7-18); eGFR NON AFRICAN AMERICAN 83 mL/min (90-120)
[2019-09-14 12:38] LABS: HEMATOCRIT 34.6 % (36.0-48.0); MCH 25.9 pg (26.0-34.0); MCHC 31.8 g/dL (31.0-37.0); MCV 81.4 fL (80.0-100.0); MEAN PLATELET VOLUME 10.3 fL (7.4-10.4); PLATELET COUNT 397 10x3/uL (130-400); RBC 4.25 10x6/uL (4.00-5.40); RDW 15.9 % (11.5-14.5); WBC 15.9 10x3/uL (4.8-10.8)
--- NOTE | 2019-09-14 13:08 | NUR ---
OT NOTE: PT PERFORMED BED MOB WITH MIN ASSIST; REPORTED PAIN IS BETTER THAN YESTERDAY. PT AMB WITH WALKER APPROX 75 FT WITHOUT REST BREAK ( ASSISTANCE REQUIRED DUE TO IV AND 02 AT 7L)...PT ASLO AMB IN ROOM TO BATHROOM WITH CGA; TOILETING WITH SBA; AMB TO SINK AND PERFORMED GROOMING AND UPPER BODY BATHING WITH WASH CLOTH WITH SBA. DONNED GOWN WITH MIN ASSIST. MOD ASSIST IWTH SHOES. PT TOLERATED STANDING AT SINK APPROX 8 MIN WITHOUT REST BREAK. ANANT LYLE, OTR/L [phone]
--- NOTE | 2019-09-14 13:46 | NUR ---
Rehab Note- Acute Inpatient Rehab prescreen order received. The patient is a good inpatient acute rehab candidate if in agreement when medicall stable. Has a procedure scheduled per GI today, also is currently on 9L/NC oxygen- will need to be weaned. Also spoke with LEONOR Garrett about new PT order being that PT s/o on 09/08 stating amb 15ft, & patient had surgery on 09/11 & not been seen per PT. Will follow at this time. Thank you for this referral! Roxane García RN Clinical Liaison, [facility] Rehab
[2019-09-14 14:10] LABS: CRENATED CELLS 1+; LYMPHOCYTES 19 % (15-50); MONOCYTES 12 % (2-11); NEUTROPHILS 67 % (40-80); PLATELET ESTIMATE INCREASED
[2019-09-14 14:11] LABS: ROULEAUX OCC
--- NOTE | 2019-09-14 15:16 | NUR ---
TO OR PER BED
--- NOTE | 2019-09-14 16:06 | NUR ---
OT NOTE: PT COMPLETED SUPINE TO SIT WITH SBA. PT COMPLETED EOB SITTING WITH SPV. PT COMPLETED FACE HYGIENE WITH SET UP AT EOB. [phone] THANK YOU,NEGAR OWENS
--- NOTE | 2019-09-14 16:31 | NUR ---
16CC CONTRAST, 22 SECONDS FLURO TIME
--- NOTE | 2019-09-14 17:45 | NUR ---
RETURN FROM OR PER BED, SON AT SIDE
--- NOTE | 2019-09-14 18:23 | NUR ---
WITHOUT CHANGES OR DISTRESS NOTED AT THIS TIME. DENIES NEEDS
[2019-09-14 20:00] VITALS: BP 155/58
[2019-09-15] VITALS: BP 154/58
--- NOTE | 2019-09-15 00:15 | NUR ---
IV RESITED TO LEFT FOREARM, 20 GUAGE, FIRST ATTEMPT BY Robin JAMES RN.
[2019-09-15 04:00] VITALS: BP 176/67
--- NOTE | 2019-09-15 07:15 | NUR ---
ASSESSMENT DONE. DENIES NEEDS
--- NOTE | 2019-09-15 08:04 | EC ---
PATIENT:RACHELLE BRITO DATE OF SERVICE: 09/08/19 SEX: F MEDICAL RECORD: [id number] DATE OF : [birth year] LOCATION:D.M2 D.212 AGE OF PATIENT: 89 ADMISSION DATE: 09/08/19 REFERRING PHYSICIAN: INTERPRETING PHYSICIAN: ELIA GARCIA MD ECHOCARDIOGRAM REPORT ECHO CHARGES 4 ECHO COMPLETE Date: 09/11/19 CLINICAL DIAGNOSIS: AFIB ECHOCARDIOGRAPHIC MEASUREMENTS (adult normal given) AC root (d.<3.7cm) 2.4 cm LV Septum d (<1.2 cm> 0.9 cm Valve Excursion 1.4 cm LV Septum (systole) 1.6 cm Left Atria (s.<4.0cm> 4.0 cm LVPW d(<1.2cm) 1.1 cm RV (d.<2.3cm) 2.5 cm LVPW (sytole) 1.3 cm LV diastole(<5.6CM) 5.2 cm MV E-F(>70mm/sec) cm LV systole 3.5 cm LVOT Diameter 1.8 cm MV exc.(>10mm) cm Est.ejection fraction (50-75%) % DOPPLER: LVIT cm/sec A 134 cm/sec E 99 cm/sec LA cm/sec RVSP 51.2 mmHg LVOT 135 cm/sec AOP1/2T m/s Asc. Ao 163 cm/sec RVOT 81 cm/sec RA cm/sec PA 100 cm/sec AV Gradient Peak 10.6 mmHg AV Mean 6.0 mmHg AV Area 2.2 cm MV Gradient Peak 7.7 mmHg MV Mean 3.9 mmHg MV Area cm COMMENTS: Emery Wheel Worker: Henok DAVE [place]: 3 Dr. Pimentel TAPE# PACS Pericardial Effusion N DATE OF SERVICE: Adequate 2D, color flow imaging, spectral Doppler, and M-Mode. No LVH. LV internal dimension is normal. Wall motion is normal. EF is greater than or equal to 55%. Aortic valve is tricuspid. No evidence of stenosis by Doppler interrogation. Left atrium is normal at 4.0 cm. Mitral valve shows no prolapse. Trace MR. Right-sided chambers are grossly normal. Trace TR. TRANSINT:[id number] Voice Confirmation ID: [id number] DOCUMENT ID: [id number] ECHOCARDIOGRAM REPORT [id number] DARYL,RACHELLE J ELIA GARCIA MD at 0804 CC: [id number] DICTATION DATE: 09/12/19 0857 RESEARCH AND DEVELOPMENT SPECIALIST: 09/12/19 1439 ADM IN [facility] [address] [place] [id number]
--- NOTE | 2019-09-15 09:21 | NUR ---
I have reviewed this patient and I concur with the Shift Assessment completed by the Licensed Practical Nurse today this shift.
[2019-09-15 09:25] VITALS: BP 122/77
[2019-09-15 10:55] LABS: BILIRUBIN NEGATIVE (NEGATIVE); GLUCOSE NEGATIVE (NEGATIVE); KETONE MODERATE mg/dL (NEGATIVE); NITRITE NEGATIVE (NEGATIVE); SPECIFIC GRAVITY 1.005 (1.005-1.020); UROBILINOGEN NORMAL (NORMAL)
--- NOTE | 2019-09-15 12:20 | NUR ---
OT NOTE: OT ENTERED ROOM TODAY AND PT WAS STANDING AT BEDSIDE TANGLED UP IN HER 02 AND PHONE CORDS. PT WAS LAUGHING AND STATED.. "CAN YOU HELP ME?"..ASSISTED PT WITH CORDING. PT WAS AMB IN ROOM WITHOUT ASSIST. ABLE TO PERFORM TOILETING WITH SBA; PROVIDED PT WITH CHAIR SO THAT SHE COULD STAY OUT OF BED. PT AMB TO SINK AND WAS ABLE TO PERFORM SINK HYGIENE IN STANDING WITH CGA. PT REQUIRED 1 SIT DOWN REST BREAK DUE TO FATIGUE BUT WAS ABLE TO COMPLETE ON SECOND TRIAL. ANANT LYLE, OTR/L [phone]
--- NOTE | 2019-09-15 12:41 | NUR ---
Nutrition Follow-up: S/p ERCP with sphincterotomy and calculus removal on 09/13. Ate ~25% of breakfast this AM with tolerance. Denies N/V. -BM. Declines nutrition supplements. Diet: Cardiac Wt: 171# (09/14); 170.8# (09/12) Labs reviewed Meds noted: Lasix, Reglan, Milk of Magnesia, Pepcid, electrolyte protocol -Encourage PO intake and honor food preferences within diet restrictions. -Monitor wt; noted daily wts ordered. -RD following.
[2019-09-15 13:45] VITALS: BP 150/69
[2019-09-15 13:53] LABS: BASOPHILS 0.6 % (0-2); EOSINOPHILS 0.6 % (0-7); HEMOGLOBIN 12.1 g/dL (12-16); IMMATURE GRANULOCYTES 5.3 % (0-5); MCH 25.7 pg (26.0-34.0); MCHC 32.7 g/dL (31.0-37.0); MEAN PLATELET VOLUME 9.8 fL (7.4-10.4); MONOCYTES 13.2 % (2-11); NEUTROPHILS 68.3 % (40-80); PLATELET COUNT 455 10x3/uL (130-400); RBC 4.71 10x6/uL (4.00-5.40); RDW 15.1 % (11.5-14.5); WBC 16.7 10x3/uL (4.8-10.8)
[2019-09-15 14:00] LABS: MCV 78.6 fL (80.0-100.0)
[2019-09-15 14:05] LABS: ANION GAP 11.1 mmol/L (8-16); CALCIUM 8.3 mg/dL (8.5-10.1); CARBON DIOXIDE 26.6 mmol/L (21.0-32.0)
[2019-09-15 14:06] LABS: CREATININE - SERUM 0.9 mg/dL (0.6-1.3)
[2019-09-15 14:11] LABS: POTASSIUM - SERUM 2.7 mmol/L (3.5-5.1)
--- NOTE | 2019-09-15 17:44 | NUR ---
WITHOUT CHANGES OR DISTRESS NOTED AT THIS TIME. DENIES NEEDS
[2019-09-15 17:51] VITALS: BP 159/76
--- NOTE | 2019-09-15 19:11 | NUR ---
PT UP IN CHAIR CALL LIGHT IS WITH PT WATER TAKEN TO PT BED IS LOW AND LOCKED PT DENIES OTHER NEEDS
[2019-09-15 20:00] VITALS: BP 152/78
[2019-09-16] VITALS: BP 161/65
[2019-09-16 04:00] VITALS: BP 177/72
[2019-09-16 08:04] VITALS: BP 165/78
[2019-09-16 09:51] LABS: ANION GAP 9.6 mmol/L (8-16); CALCIUM 8.8 mg/dL (8.5-10.1); CARBON DIOXIDE 31.3 mmol/L (21.0-32.0); CREATININE - SERUM 1.1 mg/dL (0.6-1.3); MAGNESIUM - SERUM 1.8 mg/dL (1.8-2.4)
[2019-09-16 10:00] LABS: POTASSIUM - SERUM 2.9 mmol/L (3.5-5.1)
[2019-09-16] MEDS ORDERED: CARDIZEM60 MG PO (12:13)
--- NOTE | 2019-09-16 12:43 | NUR ---
4950-I TRIED TO CALL [facility] TO CLARIFY SOME DISCHARGE MEDS FOR REHAB. I SPOKE WITH ANDERSON GERBER WHO STATES, "SHE IS IN THE UNIT TALKING TO DR HYLTON". I ASKED HER TO PLEASE HAVE HER CALL ME.
[2019-09-16 12:49] VITALS: BP 136/70
--- NOTE | 2019-09-16 13:15 | NUR ---
OT NOTE: PT SITTING UP ON EOB TALKING WITH SISTER. PT ABLE TO AMB IN ROOM WITH CGA; MIN ASSIST TO ANGELINA GOWN; SBA FOR SINK HYGIENE; AMB WITH PATIENT WITHOUT 02 (2L).. PT WAS ABLE TO AMB 85 FT WITH CGA, HOWEVER, 02 STAYED AROUND 87-88 WITHOUT USE OF 02.. STOPPED TWICE AND REQUIRED FREQ CUES FOR BREATHING TECH BUT ONLY GOT TO 90 AND ONCE SHE BEGAN AMB AGAIN, IT DROPPED BACK DOWN TO 88. UPON RETURN TO ROOM, 02 REAPPLIED AND IMMEDIATELY RETURNED TO 93%. PLANS TO DC TO REHAB TODAY. ANANT LYLE, OTR/L [phone]
--- NOTE | 2019-09-16 13:22 | NUR ---
[facility] ON FLOOR AND MADE AWARE OF MY REQUEST TO LOOK AT ADDING [facility]S TO DISCHARGE MEDS FOR IP REHAB. STATES THAT SHE WILL LOOK AT THEM AND ADDRESS NEEDED.
[2019-09-16] MEDS ORDERED: LOVENOX40 MG/0.4 SC (14:03)
[2019-09-16] MEDS ORDERED: MILK OF MAGNESI30 ML PO (14:03)
[2019-09-16] MEDS ORDERED: LASIX40 MG PO (14:03)
[2019-09-16] MEDS ORDERED: PHENAZOPYRIDIN100 MG PO (14:03)
--- NOTE | 2019-09-16 14:25 | NUR ---
I JUST CALLED AND TALKED TO [facility] AND SHE SAID THAT SHE UPDATED THE MED LIST FOR REHAB. PAPERWORK FINISHING.
--- NOTE | 2019-09-16 15:09 | NUR ---
PT DISCHARGED TO REHAB 1118A. PIV REMOVED WITH CATHETER TIP FULLY INTACT. TELEMETRY REMOVED AND RETURNED. PT SIGNED PROPER DISCHARGE INSTRUCTIONS AND REMOVED ALL VALUABLES FROM THE ROOM.
--- NOTE | 2019-09-16 15:52 | MORECARE ---
CASE MANAGEMENT DISCHARGE SUMMARY PATIENT: RACHELLE BRITO UNIT: [id number] ADM DATE: 09/08/19 AGE: 89 : 30 SEX: F ROOM/BED: D.6561 AUTHOR: ALTHEA,DOC PHYSICIAN: REFERRING PHYSICIAN: NICCI RIBEIRO MD DATE OF SERVICE: 09/16/19 Discharge Plan Patient Name: RACHELLE BRITO Facility: [facility]:[place] : 1930 Planned Disposition: Inpatient Rehab Anticipated Discharge Date: Discharge Date: 09/16/2019 Expected LOS: 0 Initial Reviewer: [email or web address] Initial Review Date: 09/08/2019 Generated: 09/16/19 4:51 pm Comments DCP- Discharge Planning Updated by [email or web address]: Sudha Negrete on 09/16/19 2:[address] Patient Name: RACHELLE BRITO Encounter No: [id number] : 1930 Primary Insurance: MEDICARE A & B Anticipated DC Date: Planned Disposition: Inpatient Rehab External Planned Provider: : DCP follow-up note: CM met with patient since PT stated she would benefit from IP rehab. Patient in agreement with plan. AMRIT signed for [facility] IP rehab. DC IMM delivered, explained, signed by the patient, and placed in his chart. Signed form also left with patient. Patient and family in agreement with discharge plan. Sudha Negrete MSN,RN,CM DCP- Discharge Planning Updated by [email or web address]: Karyn Harrell on 09/09/19 7:[address] Patient Name: RACHELLE BRITO Admission Status: ER Accout number: [id number] Admission Date: 09-08-2019 : 1930 Admission Diagnosis: Attending: NICCI RIBEIRO Current LOS: 1 Anticipated DC Date: Planned Disposition: Home or Self Care Primary Insurance: MEDICARE A & B Discharge Planning Comments: CM met with patient to complete initial dc planning assessment. CM educated patient on the CM role and verbal consent given by patient to complete assessment. Patient lives at home alone where she states she is independent with her care. At discharge patient plans to return home and feels this is a safe discharge. CM discussed availability of home health, rehab services, and medical equipment. At discharge her son or niece will be her dumpster driver home. Patient denied known discharge needs at this time. CM will continue to follow and will assist as needed with dc plans/needs. Java Security Engineer: Karyn Harrell DCPIA - Discharge Planning Initial Assessment Updated by [email or web address]: Karyn Harrell on 09/09/19 8:21 am * Is the patient Alert and Oriented? Yes * How many steps to enter\exit or inside your home? * PCP VA[facility]ALI * Pharmacy [facility] * Preadmission Environment Home Alone * ADLs Independent * Equipment None * List name and contact numbers for known caregivers / representatives who currently or will assist patient after discharge: BRIAN BRITO (SON) [phone] NAA DASILVA * Verbal permission to speak to the caregivers and representatives has been obtained from the patient. N/A * Community resources currently utilized None * Additional services required to return to the preadmission environment? No * Can the patient safely return to the preadmission environment? Yes * Has this patient been hospitalized within the prior 30 days at any hospital? No Last DP export: 09/09/19 7:24 a Patient Name: RACHELLE BRITO Page [id number] at 1552 All edits/amendments must be made on the electronic document DICTATION DATE: 09/16/191550 TAPE TRANSFERRER: FAVIAN 09/16/191550 RPT#: [id number] DC DATE:09/16/19 STATUS: DIS IN [facility] [address] [place] [address] END OF REPORT
--- NOTE | 2019-09-17 09:33 | MORECARE ---
CASE MANAGEMENT DISCHARGE SUMMARY PATIENT: RACHELLE BRITO UNIT: [id number] ADM DATE: 09/08/19 AGE: 89 : 30 SEX: F ROOM/BED: D.4442 AUTHOR: ALTHEA,DOC PHYSICIAN: REFERRING PHYSICIAN: NICCI RIBEIRO MD DATE OF SERVICE: 09/17/19 Discharge Plan Patient Name: RACHELLE BRITO Facility: [facility]:[place] : 1930 Planned Disposition: Inpatient Rehab Anticipated Discharge Date: Discharge Date: 09/16/2019 Expected LOS: 0 Initial Reviewer: [email or web address] Initial Review Date: 09/08/2019 Generated: 09/17/19 10:32 am Comments DCP- Discharge Planning Updated by [email or web address]: Sudha Negrete on 09/16/19 2:[address] Patient Name: RACHELLE BRITO Encounter No: [id number] : 1930 Primary Insurance: MEDICARE A & B Anticipated DC Date: Planned Disposition: Inpatient Rehab External Planned Provider: : DCP follow-up note: CM met with patient since PT stated she would benefit from IP rehab. Patient in agreement with plan. AMRIT signed for [facility] IP rehab. DC IMM delivered, explained, signed by the patient, and placed in his chart. Signed form also left with patient. Patient and family in agreement with discharge plan. Sudha Negrete MSN,RN,CM DCP- Discharge Planning Updated by [email or web address]: Karyn Harrell on 09/09/19 7:[address] Patient Name: RACHELLE BRITO Admission Status: ER Accout number: [id number] Admission Date: 09-08-2019 : 1930 Admission Diagnosis: Attending: NICCI RIBEIRO Current LOS: 1 Anticipated DC Date: Planned Disposition: Home or Self Care Primary Insurance: MEDICARE A & B Discharge Planning Comments: CM met with patient to complete initial dc planning assessment. CM educated patient on the CM role and verbal consent given by patient to complete assessment. Patient lives at home alone where she states she is independent with her care. At discharge patient plans to return home and feels this is a safe discharge. CM discussed availability of home health, rehab services, and medical equipment. 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 Patient denied known discharge needs at this time. CM will continue to follow and will assist as needed with dc plans/needs. Personal Vehicle Advisor: Karyn Harrell DCPIA - Discharge Planning Initial Assessment Updated by [email or web address]: Karyn Harrell on 09/09/19 8:21 am * Is the patient Alert and Oriented? Yes * How many steps to enter\exit or inside your home? * PCP [facility] * Pharmacy [facility] * Preadmission Environment Home Alone * ADLs Independent * Equipment None * List name and contact numbers for known caregivers / representatives who currently or will assist patient after discharge: BRIAN BRITO (SON) [phone] NAA DASILVA * Verbal permission to speak to the caregivers and representatives has been obtained from the patient. N/A * Community resources currently utilized None * Additional services required to return to the preadmission environment? No * Can the patient safely return to the preadmission environment? Yes * Has this patient been hospitalized within the prior 30 days at any hospital? No Last DP export: 09/16/19 2:52 p Patient Name: RACHELLE BRITO Page [id number] at 0933 All edits/amendments must be made on the electronic document DICTATION DATE: 09/17/19932 BELLOWS FILLER: FAVIAN 09/17/19932 RPT#: [id number] DC DATE:09/16/19 STATUS: DIS IN [facility] [address] [place] [address] END OF REPORT
== END 2019-09-16 15:10 | DRG 417 ==
LOC: D.ER 20:49 → D.M2 21:51 → D.MS 21:51 → D.M2 09-10 17:44
PROVIDERS: Family Medicine; Internal Medicine Nephrology; Surgery; ADMIT Family Medicine; ATTEND Family Medicine
PROC: BF101ZZ Fluoroscopy of Bile Ducts using Low Osmolar Contrast (ICD-10-PCS; 2019-09-12)
PROC: 0FT44ZZ Resection of Gallbladder, Percutaneous Endoscopic Approach (ICD-10-PCS; principal; 2019-09-12 10:30)
PROC: 0FC98ZZ Extirpation of Matter from Common Bile Duct, Via Natural or Artificial Opening Endoscopic (ICD-10-PCS; 2019-09-14)
DX: K80.42 Calculus of bile duct with acute cholecystitis without obstruction (principal); K85.90 Acute pancreatitis without necrosis or infection, unspecified; K85.10 Biliary acute pancreatitis without necrosis or infection; J96.01 Acute respiratory failure with hypoxia; I10 Essential (primary) hypertension; E78.5 Hyperlipidemia, unspecified; K21.9 Gastro-esophageal reflux disease without esophagitis; I48.91 Unspecified atrial fibrillation

== ENCOUNTER 2019-09-16 14:46 | Inpatient (IN) | payer MEDICARE, OTHER ==
[~2019-09-16] VITALS: Ht 160 cm; Wt 65.8 kg
[~2019-09-16 14:46] MED LIST changes: +CARDIZEM60 MG PO; +LASIX40 MG PO; +LIPITOR10 MG; +LOVENOX40 MG/0.4 SC; +MILK OF MAGNESI30 ML PO; +PHENAZOPYRIDIN100 MG PO; +ZETIA10 MG PO
[2019-09-16 17:48] VITALS: BP 162/66; BMI 25.7
--- NOTE | 2019-09-16 19:47 | NUR ---
NEW ADMIT, PT IN BED PLEASANT, NO NEEDS NOTED, FALL PRECAUTIONS IN PLACE, FLUIDS/CALL LIGHT WITHIN REACH
[2019-09-16 23:33] VITALS: BP 162/73
--- NOTE | 2019-09-17 02:51 | NUR ---
PT ASLEEP AROUSES EASILY, RESP EVEN UNLABORED, NO NEEDS NOTED, FLUIDS/CALL LIGHT WITHIN REACH
[2019-09-17 06:46] LABS: ANION GAP 10.5 mmol/L (8-16); CALCIUM 8.8 mg/dL (8.5-10.1); CREATININE - SERUM 0.8 mg/dL (0.6-1.3); POTASSIUM - SERUM 3.5 mmol/L (3.5-5.1)
[2019-09-17 06:57] LABS: BASOPHILS 0.3 % (0-2); EOSINOPHILS 2.9 % (0-7); HEMATOCRIT 38.6 % (36.0-48.0); HEMOGLOBIN 12.5 g/dL (12-16); IMMATURE GRANULOCYTES 4.4 % (0-5); LYMPHOCYTES 24.9 % (15-50); MCH 25.5 pg (26.0-34.0); MCHC 32.4 g/dL (31.0-37.0); MCV 78.8 fL (80.0-100.0); MEAN PLATELET VOLUME 9.6 fL (7.4-10.4); MONOCYTES 13.1 % (2-11); NEUTROPHILS 54.4 % (40-80); PLATELET COUNT 534 10x3/uL (130-400); WBC 13.6 10x3/uL (4.8-10.8)
[2019-09-17 07:42] VITALS: BP 164/69
[2019-09-17 12:41] VITALS: Ht 160 cm; Wt 65.8 kg
--- NOTE | 2019-09-17 14:33 | NUR ---
LAYING IN BED RESTING QUIETLY WITH EYES CLOSED. NO S/S DISTRESS. NOT WEARING OXYGEN. SIDE RAILS UP X2. CALL LIGHT IN [facility]
[2019-09-17 20:05] VITALS: BP 145/58; BP 149/53
--- NOTE | 2019-09-17 20:20 | NUR ---
PATIENT RECEIVED SITTING UP IN BED WATCHING TV. ASSESSMENT & VITAL SIGNS DONE. NO C/O PAIN OR DISTRESS AT THIS TIME. BED LOW. CALL LIGHT WITHIN REACH. WILL CONTINUE TO MONITOR.
--- NOTE | 2019-09-17 23:13 | NUR ---
I have reviewed this patient and I concur with the Shift Assessment completed by the Licensed Practical Nurse today this shift.
--- NOTE | 2019-09-18 04:01 | NUR ---
PATIENT EYES CLOSED. RESPIRATIONS 18 & EVEN. BED LOW. CALL LIGHT WITHIN REACH. WILL CONTINUE TO MONITOR.
--- NOTE | 2019-09-18 04:45 | NUR ---
PATIENT GIVEN SHOWER. MINIMAL ASSIST. DID NOT WASH HAIR. CLEAN BRIEF & PAJAMAS ON. RETURNED TO LOW BED. CALL LIGHT WITHIN REACH. WILL CONTINUE TO MONITOR.
[2019-09-18 08:00] VITALS: BP 165/65
--- NOTE | 2019-09-18 10:43 | NUR ---
SITTING UP IN BED WATCHING TV. DENIES NEEDS, INCREASED PAIN OR INCREASED SOB. STILL NOT WEARING OXYGEN. DENIES SOB AT REST. CALL LIGHT IN REACH, BED IN LOWEST POSITION, SIDE RAILS UP X2.
--- NOTE | 2019-09-18 12:49 | NUR ---
WALKING IN [place] WITH FAMILY MEMBER.
--- NOTE | 2019-09-18 16:57 | NUR ---
SITTING UP IN BED RESTING QUIETLY AND WATCHING TV. DENIES NEEDS. CALL LIGHT IN REACH
[2019-09-18 19:44] VITALS: BP 158/43
[2019-09-18 19:49] VITALS: BP 180/83
--- NOTE | 2019-09-18 19:50 | NUR ---
PATIENT RECEIVED SITTING UP WATCHING TV. VITAL SIGNS & ASSESSMENT DONE. NO C/O PAIN OR DISTRESS. CALL LIGHT WITHIN REACH. WILL CONTINUE TO MONITOR.
--- NOTE | 2019-09-19 01:34 | NUR ---
I have reviewed this patient and I concur with the Shift Assessment completed by the Licensed Practical Nurse today this shift.
--- NOTE | 2019-09-19 03:30 | NUR ---
PATIENT EYES CLOSED. RESPIRATIONS 18 & EVEN. BED LOW. CALL LIGHT WITHIN REACH. WILL CONTINUE TO MONITOR.
[2019-09-19 07:12] LABS: BASOPHILS 0.1 % (0-2); EOSINOPHILS 3.3 % (0-7); HEMATOCRIT 38.2 % (36.0-48.0); HEMOGLOBIN 12.2 g/dL (12-16); IMMATURE GRANULOCYTES 3.1 % (0-5); LYMPHOCYTES 29.2 % (15-50); MCH 25.1 pg (26.0-34.0); MCHC 31.9 g/dL (31.0-37.0); MCV 78.4 fL (80.0-100.0); MEAN PLATELET VOLUME 9.2 fL (7.4-10.4); NEUTROPHILS 54.3 % (40-80); PLATELET COUNT 507 10x3/uL (130-400); RBC 4.87 10x6/uL (4.00-5.40); RDW 15.1 % (11.5-14.5); WBC 12.2 10x3/uL (4.8-10.8)
[2019-09-19 07:36] LABS: ALBUMIN 2.8 g/dL (3.4-5.0); ANION GAP 11.9 mmol/L (8-16); BILIRUBIN - TOTAL 0.38 mg/dL (0.2-1.3); CALCIUM 8.9 mg/dL (8.5-10.1); CARBON DIOXIDE 29.9 mmol/L (21.0-32.0); CREATININE - SERUM 0.8 mg/dL (0.6-1.3); POTASSIUM - SERUM 3.8 mmol/L (3.5-5.1); PROTEIN - SERUM 6.2 g/dL (6.4-8.2)
[2019-09-19 08:00] VITALS: BP 162/65
--- NOTE | 2019-09-19 14:41 | NUR ---
RESTING QUIETLY IN BED. EYES CLOSED, RESP EFFORT NON LABORED. BED IN LOWEST POSITION, SIDE RAILS UP X2. CALL LIGHT IN REACH
--- NOTE | 2019-09-19 17:58 | NUR ---
SITTING ON SIDE OF BED USING IPAD. DENIES NEEDS. STATES SHE IS FEELING BETTER TODAY THAN YESTERDAY. CALL LIGHT IN REACH. BED IN LOWEST POSITION.
[2019-09-19 19:31] VITALS: BP 145/68
--- NOTE | 2019-09-19 19:45 | NUR ---
PT IS RESTING IN BED WITH EYES OPEN. ALERT AND ORIENTED X 3. DENIES ACUTE DISCOMFORT AT THIS TIME. NO NEEDS VOICED. STERI STRIPS ARE INTACT TO 4 ABD INCISIONS. VSS. SR'S ARE UP X 2 IN BED. CALL LIGHT AND BEDSIDE TABLE ARE WITHIN EASY REACH.
--- NOTE | 2019-09-19 22:10 | NUR ---
PT IS RESTING QUIETLY IN BED WITH EYES CLOSED. NO ACUTE DISTRESS NOTED.
--- NOTE | 2019-09-19 23:35 | NUR ---
I have reviewed this patient and I concur with the Shift Assessment completed by the Licensed Practical Nurse today this shift.
--- NOTE | 2019-09-20 03:05 | NUR ---
RESTING IN BED WITH EYES CLOSED.
--- NOTE | 2019-09-20 06:01 | NUR ---
PT RESTING QUIETLY IN BED WITH EYES CLOSED. AWOKE EASILY TO VERBAL STIMULI. TOLERATED AM MED WITHOUT DIFFICULTY. ASSISTED TO THE BATHROOM WITH SBA.
--- NOTE | 2019-09-20 08:00 | NUR ---
SHIFT ASSMT COMPLETED.BREAKFAST GIVEN.
[2019-09-20 08:04] VITALS: BP 176/68
--- NOTE | 2019-09-20 12:00 | NUR ---
SITTING UP EATING LUNCH.
--- NOTE | 2019-09-20 14:09 | NUR ---
Nutrition follow-up: Diet: Regular PO intake 50-75% of some meals Labs reviewed Wt: 145# No BM charted RDN following.
--- NOTE | 2019-09-20 16:00 | NUR ---
RESTING QUIETLY.CL IN REACH.
--- NOTE | 2019-09-20 19:38 | NUR ---
PT IN BED, NO NEEDS NOTED, WAIVER, FLUIDS/CALL LIGHT WITHIN REACH
[2019-09-21 02:18] VITALS: BP 168/68
[2019-09-21 07:34] VITALS: BP 162/65
--- NOTE | 2019-09-21 13:19 | NUR ---
Nutrition note: RDN visited with pt re: home diet. Answered pts questions about eating with hiatal hernia, no gallbladder and previous pancreatitis. RDN will provide pt with diet printed handouts before discharge. RDN following.
[2019-09-21 19:43] VITALS: BP 178/60
--- NOTE | 2019-09-21 20:33 | NUR ---
PT IN BED, NO NEEDS NOTED, WAIVER, FLUIDS/CALL LIGHT WITHIN REACH
[2019-09-22 08:14] VITALS: BP 159/56
--- NOTE | 2019-09-22 19:41 | NUR ---
MYLA RECEIVED SITTING UP IN BED. ASSESSMENT & VITAL SIGNS DONE. NO C/O PAIN OR DISTRESS. BED LOW. CALL LIGHT WITHIN REACH. WILL CONTINUE TO MONITOR.
[2019-09-22 21:53] VITALS: BP 158/58
--- NOTE | 2019-09-23 01:54 | NUR ---
PATIENT EYES CLOSED. RESPIRATIONS 18 & EVEN. BED LOW. CALL LIGHT WITHIN REACH. WILL CONTINUE TO MONITOR.
--- NOTE | 2019-09-23 02:21 | NUR ---
I have reviewed this patient and I concur with the Shift Assessment completed by the Licensed Practical Nurse today this shift.
[2019-09-23 06:07] LABS: BASOPHILS 0.2 % (0-2); EOSINOPHILS 4.3 % (0-7); HEMATOCRIT 38.4 % (36.0-48.0); IMMATURE GRANULOCYTES 1.6 % (0-5); LYMPHOCYTES 36.2 % (15-50); MCHC 31.3 g/dL (31.0-37.0); MEAN PLATELET VOLUME 9.5 fL (7.4-10.4); MONOCYTES 13.5 % (2-11); NEUTROPHILS 44.2 % (40-80); PLATELET COUNT 505 10x3/uL (130-400); RDW 15.6 % (11.5-14.5); WBC 8.2 10x3/uL (4.8-10.8)
[2019-09-23 06:20] LABS: ANION GAP 10.4 mmol/L (8-16); CARBON DIOXIDE 27.3 mmol/L (21.0-32.0); CREATININE - SERUM 1.2 mg/dL (0.6-1.3); POTASSIUM - SERUM 3.7 mmol/L (3.5-5.1)
[2019-09-23 08:11] VITALS: BP 160/58
--- NOTE | 2019-09-23 09:00 | NUR ---
WALKING AROUND ROOM GATHER HER THINGS UP. SHE IS SCHEDULED TO DC TODAY. DENIES PAIN TO ABD'S. NO S/S INFECTION NOTED. CALL LIGHT IN REACH ON BED
--- NOTE | 2019-09-23 12:41 | NUR ---
patient to discharge home today. Home Health is set up with [facility] for SN, PT, OT. Apatient choice form signed and witnessed. IMM served to patient and signed. Follow up masood'ts made with Dr Bull September 28, at 2:30. Dr Barone ThursdayOctober 09 at 10:30. she denies any other needs. Mariajose Ceron RN Clinical liaison, Rehab
--- NOTE | 2019-09-23 14:01 | NUR ---
DC HOME WITH FAMILY AND ALL PERSONAL BELONGINGS. MEDS CALLED IN TO PHARMACY. SON CAME TO GET HER AND SHE WAS ABLE TO TRANSFER WITH MIN ASST TO [facility] SE[facility]. REVIEWED MEDS. FOLLOW UP APPTS ANDDC PLAN. SHE STATES UNDERSTANDING AND DENIES QUESTIONS.
--- NOTE | 2019-09-26 08:25 | RHP ---
PATIENT: RACHELLE BRITO MEDICAL RECORD: [id number] ACCOUNT: [id number] LOCATION:[facility] : [birth year] ADMISSION DATE: 09/16/19 REHABILITATION HISTORY AND PHYSICAL EXAMINATION POST ADMISSION PHYSICIAN EXAMINATION ADMITTING DIAGNOSIS: Acute gallstone pancreatitis. HISTORY OF PRESENT ILLNESS: The patient is an 89-year-old female patient who presents to the ED with complaints of abdominal pain significantly on the evening that she presented and had history of diverticulitis and pancreatitis. The patient states that the pain came on gradually over the previous 3 hours, was crampy, achy, sharp at times and exacerbated by palpation or movement. She was seen and evaluated and found to have pain in this region. She was afebrile. The patient had labs done, which showed a lipase of 8957 and an amylase of 898. She was admitted for pancreatitis and cardiology consultation. She had an atrial fibrillation with rapid ventricular response and had to be placed on IV Cardizem. She is currently back into sinus rhythm. Surgery was consulted secondary to her gallstone-induced pancreatitis, cholelithiasis. She underwent a laparoscopic cholecystectomy and cholangiogram. GI was consulted for an intraoperative cholangiogram that showed distal common bile duct stone. On 09/14/2019, she had an ERCP with sphincterectomy and calculus removed for retained CBD stone. Currently, she is resting comfortably. Her O2 has been titrated down to 3 liters. She is in normal sinus rhythm on the director of cardiac rehabilitation. Previously, she lived alone, was independent with ADLs and mobility. Currently, she is minimal to max assist for ADLs and mobility. She has got decreased functional mobility, strength and endurance compared to her prior level of functioning. She tires quickly even after ambulating just 50 feet. She would like to return back home at her prior level of functioning. COMORBIDITIES: Include acute respiratory failure, AFib, cholecystectomy, dizziness, essential hypertension, hyperlipidemia, hyperglycemia, gastroesophageal reflux disease, pancreatitis, leukocytosis, electrolyte abnormalities. PAST MEDICAL HISTORY: Significant for dyslipidemia, got a history of acid reflux, pancreatitis, arthritis. PAST SURGICAL HISTORY: Includes hysterectomy; foot, arm and extremity surgery; and also recent cholecystectomy. ALLERGIES: No known drug allergies. CURRENT MEDICATIONS: Include Floranex 1 cap daily, she is on acetaminophen 650 every 6 hours p.r.n., furosemide 40 mg daily, Zetia 10 mg daily, Lovenox 40 mg subQ daily, vitamin D 1000 units daily, Protonix 40 mg daily, potassium 20 mEq b.i.d., Pyridium 100 mg b.i.d., Mag-Ox 400 mg b.i.d., milk of mag 30 cc b.i.d., Cardizem 60 mg b.i.d., and MiraLax 17 grams in 8 ounces of water daily. HABITS: No alcohol or tobacco use. FAMILY HISTORY: Noncontributory. SOCIAL HISTORY: The patient hopes to return back home and get back to her prior level of functioning. HISTORY AND PHYSICAL [id number] RACHELLE BRITO REVIEW OF SYSTEMS: GENERAL: Does complain of some weakness and fatigue. HEENT: Denies cold, cough, or congestion. CARDIOVASCULAR: Denies any chest pain. LUNGS: Does complain of shortness of breath with even minimal activity. PHYSICAL EXAMINATION: VITAL SIGNS: Stable. She is afebrile. GENERAL: A thin elderly female, in no acute distress upon exam. HEENT: Normocephalic and atraumatic. Mucosa moist. NECK: Supple. No lymphadenopathy. LUNGS: Clear at this time with no wheezing, rhonchi, or rales. HEART: Regular rate and rhythm. No murmurs, rubs or gallops. ABDOMEN: Soft, benign. She does have appropriate tenderness, but no rebound, no guarding. EXTREMITIES: No clubbing, cyanosis or edema. NEUROLOGIC: She does have proximal muscle weakness in her quads and also her upper arms. LABORATORY DATA: White count is 13.6, H&H of 12.5 and 38.6 and platelet count was noted to be 534. Sodium is 138, potassium 3.5, BUN and creatinine of 9 and 0.8 and blood sugar is noted to be 124. ASSESSMENT: This is an 89-year-old female patient admitted to rehab with a working diagnosis of acute gallstone-induced pancreatitis, status post laparoscopically-assisted cholecystectomy. The patient has potential to make improvement. We instituted the following multidisciplinary therapies include, but not limited to physical, occupational, respiratory, speech, nutritional services, prosthetics and orthotics. Given her complex medical condition and risks for more complications, rehabilitation services cannot be provided at a low level of care such as [facility] facility. PLAN: [facility]. [facility] to include the following disciplines; A. Physical therapy to improve gait, all transfer skills and bed mobility to a modified independent level. B. Occupational therapy to improve activities of daily living. C. Case management to assist with discharge planning and placement options. D. Nutrition to assist with nutritional needs. E. Rehabilitation nursing to assist in monitoring the patient's underlying medical conditions and to assist with any type bowel or bladder management. 2. The patient's current medication and medical care will be continued. 3. The patient will be placed on standard fall precautions. 4. The patient's estimated length of stay is approximately 7-10 days. 5. We will discuss the patient during care team staff meeting this week. TRANSINT:[id number] Voice Confirmation ID: [id number] DOCUMENT ID: [id number] 09/22/2019 Edited for jayla BRUCE. TEO notes whether there has been none or any medical/functional change since admission: - No change since preadmission screen. HISTORY AND PHYSICAL [id number] RACHELLE BRITO attests patient continues to be appropriate for IRF: - Continues to be appropriate. AMBER BRAND MD at 0825 CC: [id number] DICTATION DATE: 09/17/19 183 NETWORK LEAD: 09/17/19 2145 DIS IN 09/23/19 [id number] [place] [address]
== END 2019-09-23 17:04 | disposition home health service (06) | DRG 438 ==
LOC: D.REHAB 14:46
PROVIDERS: ADMIT Emergency Medicine; ATTEND Emergency Medicine
DX: K85.10 Biliary acute pancreatitis without necrosis or infection (principal); J96.01 Acute respiratory failure with hypoxia; I48.91 Unspecified atrial fibrillation; R42 Dizziness and giddiness; I10 Essential (primary) hypertension; E78.5 Hyperlipidemia, unspecified; K21.9 Gastro-esophageal reflux disease without esophagitis; E87.8 Other disorders of electrolyte and fluid balance, not elsewhere classified; D72.829 Elevated white blood cell count, unspecified; R73.9 Hyperglycemia, unspecified; E83.42 Hypomagnesemia; R53.83 Other fatigue; R53.1 Weakness; M19.90 Unspecified osteoarthritis, unspecified site; M85.80 Other specified disorders of bone density and structure, unspecified site